=== PATIENT | female | born 1950 | race Caucasian/White ===

== ENCOUNTER 2017-03-11 12:46 | Inpatient (IN) | payer MEDICARE, BC ==
[~2017-03-11] VITALS: Ht 160 cm; Wt 69.1 kg
[~2017-03-11 12:46] MED LIST: ASPI-1265 PO; ATOR20TA PO; ATOR40TA PO; CLOP75TA35 PO; DOL10T PO; ESZO3TAB39 PO; GABA-338 PO; HYDR10SY14 PO; LISI2.5T2 PO; LORA1TAB PO; LURA80TA3 PO; NITR0.4T51 SL; PANT-47 PO; POTA10CA44 PO; PRAM0.252 PO; PRAZ2CAP2 PO; VORT10TA PO
[2017-03-11 13:05] LABS: BASOPHILS % (AUTO) 0.1 % (0-1); EOSINOPHILS # (AUTO) 0.1 X10'3 (0-0.9); EOSINOPHILS % (AUTO) 1.5 % (0-6); HEMOGLOBIN 15.1 g/dl (12.0-16.0); LYMPHOCYTES # (AUTO) 1.9 X10'3 (1.1-4.8); LYMPHOCYTES % (AUTO) 32.1 % (21-51); MEAN CORPUSCULAR HEMOGLOBIN 30.1 PG (27.0-31.0); MEAN CORPUSCULAR HGB CONC 33.6 % (33.0-36.5); MEAN CORPUSCULAR VOLUME 89.5 FL (78-98); MEAN PLATELET VOLUME 7.4 FL (7.4-10.4); MONOCYTES # (AUTO) 0.3 X10'3 (0-0.9); MONOCYTES % (AUTO) 5.7 % (2-12); NEUTROPHILS # (AUTO) 3.6 X10'3 (1.8-7.7); NEUTROPHILS % (AUTO) 60.6 % (42-75); PLATELET COUNT 191 X10'3 (140-440); RED BLOOD COUNT 5.02 X10'6 (4.20-5.60); RED CELL DISTRIBUTION WIDTH 13.9 % (11.5-14.5)
[2017-03-11 13:15] LABS: PARTIAL THROMBOPLASTIN TIME 27 SECONDS (22-32); PROTHROMBIN TIME 10.4 SECONDS (9.0-12.0)
[2017-03-11 13:22] LABS: ALANINE AMINOTRANSFERASE 18 U/L (12-78); ALBUMIN 4.4 G/DL (3.4-5.0); ALBUMIN/GLOBULIN RATIO 1.5 (1.1-1.5); ALKALINE PHOSPHATASE 116 IU/L (46-116); ANION GAP 10 (8-16); ASPARTATE AMINO TRANSFERASE 15 U/L (10-37); BILIRUBIN,TOTAL 0.6 MG/DL (0.1-1.0); BLOOD UREA NITROGEN 14 MG/DL (7-18); BUN/CREATININE RATIO 13.1 (6.6-38.0); CALCIUM 9.7 MG/DL (8.5-10.1); CHLORIDE 103 MMOL/L (99-107); CREATININE 1.07 MG/DL (0.40-0.90); GLUCOSE 99 MG/DL (70-104); POTASSIUM 3.5 MMOL/L (3.5-5.1); SODIUM 143 MMOL/L (135-145); TOTAL PROTEIN 7.4 G/DL (6.4-8.2); eGFR 51 ML/MIN
[2017-03-11] MEDS ORDERED: aspirin 81mg tab.chew PO ONE (13:45)
[2017-03-11] MEDS ORDERED: nitroGLYCERIN 0.4mg SUBLingual tab SL PRN (13:45)
[2017-03-11] MEDS ORDERED: mag hydrox/Alum hydrox/simeth 30ml oral suspension PO PRN (14:45)
[2017-03-11] MEDS ORDERED: magnesium 4gm in 100ml NS 100 ML IV PRN (14:45)
[2017-03-11] MEDS ORDERED: magnesium Cl slow-release 64mg tablet PO PRN (14:45)
[2017-03-11] MEDS ORDERED: magnesium 2GM in 50ml NS 50 ML IV PRN (14:45)
[2017-03-11] MEDS ORDERED: magnesium hydroxide 30ml (MOM) UD suspension PO PRN (14:45)
[2017-03-11] MEDS ORDERED: acetaminophen 325mg tablet PO PRN (14:45)
[2017-03-11] MEDS ORDERED: potassium Cl 20 mEq SR tablet PO PRN ×2 (14:45)
[2017-03-11] MEDS ORDERED: albuterol 2.5 MG/3 ML nebule NEB PRN (14:45)
[2017-03-11] MEDS ORDERED: potassium Cl 40MEQ/NS 500ml 500 ML IV PRN ×2 (14:45)
[2017-03-11] MEDS ORDERED: ipratropium/albuterol 3ml nebule NEB PRN (14:45)
[2017-03-11] MEDS ORDERED: ondansetron/PF 4mg/2ml inj IV PRN (14:45)
[2017-03-11 15:00] VITALS: BP 157/62
[2017-03-11] MEDS: normal saline 1000ml 1,000 ML IV SCH (15:16)
[2017-03-11 19:00] VITALS: BP 152/68
[2017-03-11 19:41] LABS: BASOPHILS % (AUTO) 0.4 % (0-1); EOSINOPHILS # (AUTO) 0.1 X10'3 (0-0.9); EOSINOPHILS % (AUTO) 1.1 % (0-6); HEMATOCRIT 40.7 % (35.0-45.0); HEMOGLOBIN 13.9 g/dl (12.0-16.0); LYMPHOCYTES # (AUTO) 1.8 X10'3 (1.1-4.8); LYMPHOCYTES % (AUTO) 28.5 % (21-51); MEAN CORPUSCULAR HEMOGLOBIN 30.2 PG (27.0-31.0); MEAN CORPUSCULAR HGB CONC 34.1 % (33.0-36.5); MEAN CORPUSCULAR VOLUME 88.6 FL (78-98); MEAN PLATELET VOLUME 7.5 FL (7.4-10.4); MONOCYTES # (AUTO) 0.3 X10'3 (0-0.9); MONOCYTES % (AUTO) 4.6 % (2-12); NEUTROPHILS # (AUTO) 4.2 X10'3 (1.8-7.7); NEUTROPHILS % (AUTO) 65.4 % (42-75); PLATELET COUNT 175 X10'3 (140-440); RED CELL DISTRIBUTION WIDTH 13.7 % (11.5-14.5); WHITE BLOOD COUNT 6.4 X10'3 (4.5-11.0)
[2017-03-11] MEDS: enoxaparin 40mg/0.4ml syringe SQ SCH (20:43)
[2017-03-11] MEDS: enoxaparin 30mg/0.3ml syringe SQ SCH (20:43)
[2017-03-11] MEDS: gabapentin 300mg capsule PO SCH (20:44)
[2017-03-11] MEDS: atorvastatin 20mg tablet PO SCH (20:44)
[2017-03-11] MEDS: pramipexole 0.25mg tablet PO SCH (20:45)
[2017-03-11] MEDS: prazosin 1mg capsule PO SCH (20:46)
[2017-03-11] MEDS: LORazepam 1 MG tablet PO PRN (20:46)
[2017-03-11] MEDS ORDERED: temazepam 15mg capsule PO PRN (21:00)
[2017-03-11] MEDS ORDERED: lurasidone 20mg tablet PO ONE (21:00)
[2017-03-11 23:00] VITALS: BP 145/65
[2017-03-12] VITALS (16 sets, daily range): BP systolic 135–178; BP diastolic 51–90
[2017-03-12] MEDS: normal saline 1000ml 1,000 ML IV SCH (00:45)
[2017-03-12 01:34] LABS: ALANINE AMINOTRANSFERASE 15 U/L (12-78); ALBUMIN 3.5 G/DL (3.4-5.0); ALBUMIN/GLOBULIN RATIO 1.3 (1.1-1.5); ALKALINE PHOSPHATASE 98 IU/L (46-116); ANION GAP 8 (8-16); ASPARTATE AMINO TRANSFERASE 14 U/L (10-37); BILIRUBIN,TOTAL 0.6 MG/DL (0.1-1.0); BLOOD UREA NITROGEN 14 MG/DL (7-18); BUN/CREATININE RATIO 15.7 (6.6-38.0); CALCIUM 9.1 MG/DL (8.5-10.1); CHLORIDE 109 MMOL/L (99-107); CREATININE 0.89 MG/DL (0.40-0.90); GLUCOSE 90 MG/DL (70-104); POTASSIUM 3.7 MMOL/L (3.5-5.1); SODIUM 144 MMOL/L (135-145); TOTAL CARBON DIOXIDE 26.8 MMOL/L (24-32); TOTAL PROTEIN 6.1 G/DL (6.4-8.2); eGFR 64 ML/MIN
[2017-03-12 01:38] LABS: MAGNESIUM 1.9 MG/DL (1.5-2.4)
[2017-03-12 01:51] LABS: BASOPHILS % (AUTO) 0.3 % (0-1); EOSINOPHILS # (AUTO) 0.1 X10'3 (0-0.9); EOSINOPHILS % (AUTO) 1.9 % (0-6); HEMATOCRIT 40.8 % (35.0-45.0); HEMOGLOBIN 13.7 g/dl (12.0-16.0); LYMPHOCYTES # (AUTO) 2.6 X10'3 (1.1-4.8); LYMPHOCYTES % (AUTO) 45.4 % (21-51); MEAN CORPUSCULAR HEMOGLOBIN 30.2 PG (27.0-31.0); MEAN CORPUSCULAR HGB CONC 33.5 % (33.0-36.5); MONOCYTES # (AUTO) 0.3 X10'3 (0-0.9); MONOCYTES % (AUTO) 5.8 % (2-12); NEUTROPHILS # (AUTO) 2.7 X10'3 (1.8-7.7); NEUTROPHILS % (AUTO) 46.6 % (42-75); PLATELET COUNT 165 X10'3 (140-440); RED BLOOD COUNT 4.54 X10'6 (4.20-5.60); RED CELL DISTRIBUTION WIDTH 13.8 % (11.5-14.5); WHITE BLOOD COUNT 5.7 X10'3 (4.5-11.0)
[2017-03-12] MEDS: K and/or MAG REPLACEMENT MC SCH (06:36)
[2017-03-12] MEDS: clopidogrel 75mg tablet PO SCH (07:48)
[2017-03-12] MEDS: pantoprazole 40mg Tablet.DR PO SCH (07:48)
[2017-03-12] MEDS: aspirin 81mg tab.chew PO SCH (07:48)
[2017-03-12] MEDS: voritioxetine HBr 5mg tablet PO SCH (07:49)
[2017-03-12] MEDS: lisinopril 2.5mg tablet PO SCH (07:51)
[2017-03-12] MEDS: enoxaparin 30mg/0.3ml syringe SQ SCH ×2 (07:51→19:36)
[2017-03-12] MEDS: enoxaparin 40mg/0.4ml syringe SQ SCH ×2 (07:52→19:36)
[2017-03-12] MEDS: hydrOXYzine 10 MG tablet PO SCH (07:55)
[2017-03-12] MEDS ORDERED: non-formulary drug (Atorvastatin Calcium* (Lipitor*) 1 TAB) PO SCH (08:00)
[2017-03-12] MEDS ORDERED: potassium chloride 10mEq CAPSULE.SA PO SCH (08:00)
[2017-03-12] MEDS ORDERED: aminophylline inj. 10 ML IV ONE (10:50)
[2017-03-12] MEDS ORDERED: regadenoson 0.4mg/5ml syringe IV ONE ×2 (10:50→11:05)
[2017-03-12] MEDS ORDERED: aminophylline 250mg/10ml inj. IV PRN (11:35)
[2017-03-12] MEDS ORDERED: regadenoson 0.4mg/5ml syringe IV PRN (11:40)
[2017-03-12] MEDS: LORazepam 1 MG tablet PO PRN (19:35)
[2017-03-12] MEDS: prazosin 1mg capsule PO SCH (21:00)
[2017-03-12] MEDS: pramipexole 0.25mg tablet PO SCH (21:05)
[2017-03-12] MEDS: gabapentin 300mg capsule PO SCH (21:05)
[2017-03-12] MEDS: atorvastatin 20mg tablet PO SCH (21:05)
[2017-03-13 03:00] VITALS: BP 158/67
[2017-03-13 07:00] VITALS: BP 114/50
[2017-03-13 07:00] LABS: BASOPHILS % (AUTO) 0.3 % (0-1); EOSINOPHILS # (AUTO) 0.1 X10'3 (0-0.9); EOSINOPHILS % (AUTO) 1.8 % (0-6); HEMATOCRIT 40.2 % (35.0-45.0); HEMOGLOBIN 13.6 g/dl (12.0-16.0); LYMPHOCYTES # (AUTO) 2.2 X10'3 (1.1-4.8); LYMPHOCYTES % (AUTO) 43.8 % (21-51); MEAN CORPUSCULAR HEMOGLOBIN 30.3 PG (27.0-31.0); MEAN CORPUSCULAR VOLUME 89.3 FL (78-98); MEAN PLATELET VOLUME 7.9 FL (7.4-10.4); MONOCYTES # (AUTO) 0.3 X10'3 (0-0.9); MONOCYTES % (AUTO) 5.9 % (2-12); NEUTROPHILS # (AUTO) 2.4 X10'3 (1.8-7.7); NEUTROPHILS % (AUTO) 48.2 % (42-75); PLATELET COUNT 153 X10'3 (140-440); RED CELL DISTRIBUTION WIDTH 13.9 % (11.5-14.5)
[2017-03-13] MEDS: K and/or MAG REPLACEMENT MC SCH (08:00)
[2017-03-13] MEDS: hydrOXYzine 10 MG tablet PO SCH (08:07)
[2017-03-13] MEDS: clopidogrel 75mg tablet PO SCH (08:08)
[2017-03-13] MEDS: lisinopril 2.5mg tablet PO SCH (08:08)
[2017-03-13] MEDS: voritioxetine HBr 5mg tablet PO SCH (08:08)
[2017-03-13] MEDS: pantoprazole 40mg Tablet.DR PO SCH (08:09)
[2017-03-13] MEDS: aspirin 81mg tab.chew PO SCH (08:09)
[2017-03-13] MEDS ORDERED: carVEDilol 3.125mg tablet PO SCH (08:15)
[2017-03-13 08:19] LABS: ALANINE AMINOTRANSFERASE 15 U/L (12-78); ALBUMIN 3.4 G/DL (3.4-5.0); ALBUMIN/GLOBULIN RATIO 1.3 (1.1-1.5); ALKALINE PHOSPHATASE 90 IU/L (46-116); ANION GAP 7 (8-16); ASPARTATE AMINO TRANSFERASE 14 U/L (10-37); BILIRUBIN,TOTAL 0.6 MG/DL (0.1-1.0); BLOOD UREA NITROGEN 12 MG/DL (7-18); BUN/CREATININE RATIO 10.8 (6.6-38.0); CALCIUM 9.3 MG/DL (8.5-10.1); CHLORIDE 110 MMOL/L (99-107); CHOL/HDL RATIO 3.4 (0.00-4.99); CHOLESTEROL 131 MG/DL (0-200); CREATININE 1.11 MG/DL (0.40-0.90); GLUCOSE 82 MG/DL (70-104); HDL CHOLESTEROL 38 MG/DL (35-60); LDL CHOLESTEROL 73 MG/DL (50-100); MAGNESIUM 1.8 MG/DL (1.5-2.4); POTASSIUM 3.9 MMOL/L (3.5-5.1); SODIUM 145 MMOL/L (135-145); TOTAL CARBON DIOXIDE 27.8 MMOL/L (24-32); TRIGLYCERIDES 106 MG/DL (20-135); eGFR 49 ML/MIN
[2017-03-13] MEDS ORDERED: COR3.125T PO (10:45)
== END 2017-03-13 14:35 | disposition home or self-care (01) | DRG 303 ==
LOC: ER 12:47 → ED HOLD 14:52 → PCU 3S 16:15
PROVIDERS: ADMIT Internal Medicine; ATTEND Family Medicine
PROC: 4A02XM4 Measurement of Cardiac Total Activity, External Approach (ICD-10-PCS; principal; 2017-03-12)
PROC: 3E073KZ Introduction of Other Diagnostic Substance into Coronary Artery, Percutaneous Approach (ICD-10-PCS; 2017-03-12)
DX: I25.119 Atherosclerotic heart disease of native coronary artery with unspecified angina pectoris (principal); G62.9 Polyneuropathy, unspecified; I27.20 Pulmonary hypertension, unspecified; J44.9 Chronic obstructive pulmonary disease, unspecified; I25.5 Ischemic cardiomyopathy; E78.00 Pure hypercholesterolemia, unspecified; E78.5 Hyperlipidemia, unspecified; F12.90 Cannabis use, unspecified, uncomplicated; F17.210 Nicotine dependence, cigarettes, uncomplicated; F31.9 Bipolar disorder, unspecified; F41.9 Anxiety disorder, unspecified; G40.909 Epilepsy, unspecified, not intractable, without status epilepticus; G89.29 Other chronic pain; Z96.612 Presence of left artificial shoulder joint; I12.9 Hypertensive chronic kidney disease with stage 1 through stage 4 chronic kidney disease, or unspecified chronic kidney disease; K21.9 Gastro-esophageal reflux disease without esophagitis; K27.9 Peptic ulcer, site unspecified, unspecified as acute or chronic, without hemorrhage or perforation; K29.70 Gastritis, unspecified, without bleeding; K76.9 Liver disease, unspecified; M19.90 Unspecified osteoarthritis, unspecified site; N18.9 Chronic kidney disease, unspecified; Z95.0 Presence of cardiac pacemaker; Z95.1 Presence of aortocoronary bypass graft; Z95.5 Presence of coronary angioplasty implant and graft; Z90.710 Acquired absence of both cervix and uterus; Z90.49 Acquired absence of other specified parts of digestive tract; Z79.82 Long term (current) use of aspirin; Z79.899 Other long term (current) drug therapy; Z79.01 Long term (current) use of anticoagulants; Z86.73 Personal history of transient ischemic attack (TIA), and cerebral infarction without residual deficits
CPT/HCPCS: 36415; 78452; 80053; 80061; 83735; 84484; 85025; 85610; 85730; 87070; 93005; 93017; 93306; 94760; 99285; A9500; J0280; J1650; J2270; J2785; J7030

== ENCOUNTER 2017-03-18 23:22 | Emergency (ER) | payer MEDICARE, BC ==
[~2017-03-18] VITALS: Ht 160 cm; Wt 70.0 kg
[~2017-03-18 23:22] MED LIST changes: -ATOR20TA PO; +COR3.125T PO
[2017-03-19] MEDS ORDERED: FURO-150 PO (01:14)
[2017-03-19] MEDS ORDERED: ISOS30TA9 PO (01:14)
[2017-03-19] MEDS ORDERED: LORazepam 2 mg/ml vial IV ONE (01:20)
[2017-03-19 01:25] LABS: PARTIAL THROMBOPLASTIN TIME 28 SECONDS (22-32)
[2017-03-19 01:29] LABS: ALANINE AMINOTRANSFERASE 19 U/L (12-78); ALBUMIN 4.3 G/DL (3.4-5.0); ALBUMIN/GLOBULIN RATIO 1.4 (1.1-1.5); ALKALINE PHOSPHATASE 109 IU/L (46-116); ANION GAP 10 (8-16); ASPARTATE AMINO TRANSFERASE 18 U/L (10-37); BILIRUBIN,TOTAL 0.4 MG/DL (0.1-1.0); BLOOD UREA NITROGEN 12 MG/DL (7-18); BUN/CREATININE RATIO 11.2 (6.6-38.0); CALCIUM 9.6 MG/DL (8.5-10.1); CHLORIDE 106 MMOL/L (99-107); CREATININE 1.07 MG/DL (0.40-0.90); GLUCOSE 98 MG/DL (70-104); POTASSIUM 3.9 MMOL/L (3.5-5.1); SODIUM 142 MMOL/L (135-145); TOTAL CARBON DIOXIDE 26.1 MMOL/L (24-32); TOTAL PROTEIN 7.3 G/DL (6.4-8.2); eGFR 51 ML/MIN
[2017-03-19 01:37] LABS: BASOPHILS % (AUTO) 0.4 % (0-1); EOSINOPHILS # (AUTO) 0.1 X10'3 (0-0.9); HEMATOCRIT 44.7 % (35.0-45.0); HEMOGLOBIN 15.2 g/dl (12.0-16.0); LYMPHOCYTES # (AUTO) 1.8 X10'3 (1.1-4.8); LYMPHOCYTES % (AUTO) 17.1 % (21-51); MEAN CORPUSCULAR HEMOGLOBIN 30.1 PG (27.0-31.0); MEAN CORPUSCULAR HGB CONC 34.1 % (33.0-36.5); MEAN CORPUSCULAR VOLUME 88.2 FL (78-98); MONOCYTES # (AUTO) 0.5 X10'3 (0-0.9); MONOCYTES % (AUTO) 4.4 % (2-12); NEUTROPHILS # (AUTO) 8.2 X10'3 (1.8-7.7); NEUTROPHILS % (AUTO) 77.1 % (42-75); PLATELET COUNT 221 X10'3 (140-440); RED BLOOD COUNT 5.06 X10'6 (4.20-5.60); RED CELL DISTRIBUTION WIDTH 12.8 % (11.5-14.5); WHITE BLOOD COUNT 10.6 X10'3 (4.5-11.0)
[2017-03-19 03:42] VITALS: BP 151/90
== END 2017-03-19 04:27 | disposition home or self-care (01) ==
LOC: ER 23:23
DX: R07.89 Other chest pain (principal); R06.02 Shortness of breath; J44.9 Chronic obstructive pulmonary disease, unspecified; I10 Essential (primary) hypertension; I25.10 Atherosclerotic heart disease of native coronary artery without angina pectoris; K21.9 Gastro-esophageal reflux disease without esophagitis; E78.00 Pure hypercholesterolemia, unspecified; G89.29 Other chronic pain; F12.10 Cannabis abuse, uncomplicated; Z86.73 Personal history of transient ischemic attack (TIA), and cerebral infarction without residual deficits; Z87.11 Personal history of peptic ulcer disease; Z95.0 Presence of cardiac pacemaker; Z95.1 Presence of aortocoronary bypass graft; Z95.5 Presence of coronary angioplasty implant and graft; Z79.899 Other long term (current) drug therapy
CPT/HCPCS: 36415; 71045; 80053; 84484; 85025; 85610; 85730; 93005; 96374; 99285; J2060

== ENCOUNTER 2017-03-26 07:52 | Emergency (ER) | payer MEDICARE, BC ==
[~2017-03-26] VITALS: Ht 165.1 cm; Wt 62.6 kg
[~2017-03-26 07:52] MED LIST changes: -ASPI-1265 PO; -ESZO3TAB39 PO; +FURO-150 PO; -GABA-338 PO; -HYDR10SY14 PO; +ISOS30TA9 PO; -LISI2.5T2 PO; -LORA1TAB PO; -NITR0.4T51 SL; -PANT-47 PO; -POTA10CA44 PO; -PRAZ2CAP2 PO; -VORT10TA PO
[2017-03-26] MEDS ORDERED: normal saline 1000ML IV soln IVB ONE (08:00)
[2017-03-26 08:12] LABS: BASOPHILS % (AUTO) 0.3 % (0-1); EOSINOPHILS # (AUTO) 0.2 X10'3 (0-0.9); EOSINOPHILS % (AUTO) 3.7 % (0-6); HEMATOCRIT 39.4 % (35.0-45.0); HEMOGLOBIN 13.1 g/dl (12.0-16.0); LYMPHOCYTES # (AUTO) 1.4 X10'3 (1.1-4.8); LYMPHOCYTES % (AUTO) 25.8 % (21-51); MEAN CORPUSCULAR HGB CONC 33.3 % (33.0-36.5); MEAN PLATELET VOLUME 7.1 FL (7.4-10.4); MONOCYTES # (AUTO) 0.4 X10'3 (0-0.9); MONOCYTES % (AUTO) 8.2 % (2-12); NEUTROPHILS # (AUTO) 3.3 X10'3 (1.8-7.7); PLATELET COUNT 217 X10'3 (140-440); RED BLOOD COUNT 4.38 X10'6 (4.20-5.60); RED CELL DISTRIBUTION WIDTH 13.9 % (11.5-14.5); WHITE BLOOD COUNT 5.4 X10'3 (4.5-11.0)
[2017-03-26 08:20] LABS: PROTHROMBIN TIME 10.3 SECONDS (9.0-12.0)
[2017-03-26 08:26] LABS: ALANINE AMINOTRANSFERASE 17 U/L (12-78); ALBUMIN 3.3 G/DL (3.4-5.0); ALKALINE PHOSPHATASE 99 IU/L (46-116); ANION GAP 6 (8-16); ASPARTATE AMINO TRANSFERASE 17 U/L (10-37); BILIRUBIN,TOTAL 0.4 MG/DL (0.1-1.0); BLOOD UREA NITROGEN 9 MG/DL (7-18); CALCIUM 9.2 MG/DL (8.5-10.1); CHLORIDE 105 MMOL/L (99-107); CREATININE 1.13 MG/DL (0.40-0.90); GLUCOSE 98 MG/DL (70-104); POTASSIUM 3.9 MMOL/L (3.5-5.1); SODIUM 142 MMOL/L (135-145); TOTAL CARBON DIOXIDE 30.9 MMOL/L (24-32); TOTAL PROTEIN 6.6 G/DL (6.4-8.2); eGFR 48 ML/MIN
[2017-03-26 08:34] LABS: MAGNESIUM 1.7 MG/DL (1.5-2.4)
[2017-03-26 09:34] LABS: CLARITY,URINE CLEAR (Clear); COLOR,URINE YELLOW (Yellow); GLUCOSE, URINE NEGATIVE (Neg); KETONES,URINE TRACE mg/dl (Neg); LEUKOCYTE ESTERASE ,URINE NEGATIVE (Neg); NITRITES, URINE NEGATIVE (Neg); OCCULT BLOOD,URINE NEGATIVE (Neg); PH,URINE 5.5 (4.8-8.0); PROTEIN,URINE NEGATIVE (Neg); UROBILINOGEN,URINE 0.2 E.U/dL (0.2-1.0)
[2017-03-26 09:45] LABS: UA COLLECTION TYPE OTHER
[2017-03-26 11:21] VITALS: BP 144/90
== END 2017-03-26 11:24 | disposition home or self-care (01) ==
LOC: ER 07:53
DX: S09.90XA Unspecified injury of head, initial encounter (principal); T45.521A Poisoning by antithrombotic drugs, accidental (unintentional), initial encounter; I10 Essential (primary) hypertension; G89.29 Other chronic pain; E78.00 Pure hypercholesterolemia, unspecified; J44.9 Chronic obstructive pulmonary disease, unspecified; K21.9 Gastro-esophageal reflux disease without esophagitis; F12.10 Cannabis abuse, uncomplicated; Z86.73 Personal history of transient ischemic attack (TIA), and cerebral infarction without residual deficits; Z87.11 Personal history of peptic ulcer disease; W20.8XXA Other cause of strike by thrown, projected or falling object, initial encounter; Y93.89 Activity, other specified; Y92.89 Other specified places as the place of occurrence of the external cause; Y99.8 Other external cause status
CPT/HCPCS: 36415; 70450; 71045; 80053; 81003; 83735; 83880; 84484; 85025; 85610; 93005; 96360; 99285; A4353

== ENCOUNTER 2017-09-27 19:45 | Inpatient (IN) | payer MEDICARE, BC ==
[~2017-09-27] VITALS: Ht 160 cm; Wt 64.4 kg
[~2017-09-27 19:45] MED LIST changes: -GABA-534 PO; -IBUP-24 PO; -VORT20TA PO; -VORT5TAB PO
[2017-09-27] MEDS ORDERED: nitroGLYCERIN 0.4mg SUBLingual tab SL PRN (21:35)
[2017-09-27 21:38] VITALS: BP 140/66
[2017-09-27] MEDS ORDERED: zolpidem 5mg tablet PO ONE (21:45)
[2017-09-27] MEDS ORDERED: divalproex sodium 250mg tablet PO ONE (21:45)
[2017-09-27] MEDS ORDERED: lurasidone 20mg tablet PO ONE (21:45)
[2017-09-27] MEDS ORDERED: gabapentin 300mg capsule PO ONE (21:45)
[2017-09-27] MEDS ORDERED: busPIRone 5mg tablet PO ONE (21:45)
[2017-09-28 08:00] VITALS: BP 153/78
[2017-09-28] MEDS ORDERED: divalproex sodium 250mg tablet PO SCH (08:00)
[2017-09-28] MEDS ORDERED: lurasidone 20mg tablet PO SCH ×2 (08:00→20:00)
[2017-09-28] MEDS ORDERED: voritioxetine HBr 5mg tablet PO SCH (08:00)
[2017-09-28] MEDS ORDERED: busPIRone 5mg tablet PO SCH (08:00)
[2017-09-28 08:18] LABS: BASOPHILS % (AUTO) 0.3 % (0-1); EOSINOPHILS # (AUTO) 0.1 X10'3 (0-0.9); EOSINOPHILS % (AUTO) 2.6 % (0-6); HEMATOCRIT 38.9 % (35.0-45.0); HEMOGLOBIN 13.2 g/dl (12.0-16.0); LYMPHOCYTES # (AUTO) 1.9 X10'3 (1.1-4.8); LYMPHOCYTES % (AUTO) 44.3 % (21-51); MEAN CORPUSCULAR HEMOGLOBIN 31.9 PG (27.0-31.0); MEAN CORPUSCULAR VOLUME 93.7 FL (78-98); MEAN PLATELET VOLUME 8.1 FL (7.4-10.4); MONOCYTES # (AUTO) 0.3 X10'3 (0-0.9); NEUTROPHILS % (AUTO) 45.8 % (42-75); PLATELET COUNT 132 X10'3 (140-440); RED BLOOD COUNT 4.15 X10'6 (4.20-5.60); RED CELL DISTRIBUTION WIDTH 16.9 % (11.5-14.5); WHITE BLOOD COUNT 4.4 X10'3 (4.5-11.0)
[2017-09-28] MEDS: gabapentin 300mg capsule PO SCH ×2 (08:28→13:07)
[2017-09-28] MEDS: clopidogrel 75mg tablet PO SCH (08:28)
[2017-09-28] MEDS: atorvastatin 20mg tablet PO SCH (08:29)
[2017-09-28] MEDS: aspirin 81mg tab.chew PO SCH (08:29)
[2017-09-28] MEDS: isosorbide mononitrate 30mg tab.SR.24H PO SCH (08:29)
[2017-09-28 08:47] LABS: HEMOGLOBIN A1C 5.8 % (4.5-6.2)
[2017-09-28 09:32] LABS: CHOL/HDL RATIO 2.4 (0.00-4.99); CHOLESTEROL 127 MG/DL (0-200); HDL CHOLESTEROL 53 MG/DL (35-60); LDL CHOLESTEROL 60 MG/DL (50-100); TRIGLYCERIDES 70 MG/DL (20-135)
[2017-09-28] MEDS ORDERED: pneumococcal 23-VAL P-sac vacc 25 mcg/0.5ml vial IMVAC ONE (10:00)
[2017-09-28 19:00] VITALS: BP 172/78
[2017-09-28] MEDS: oxyCODONE/APAP 10/325mg tablet PO PRN (19:07)
[2017-09-28] MEDS: divalproex sodium 250mg tablet PO SCH (20:21)
[2017-09-28] MEDS: gabapentin 400mg capsule PO SCH (20:22)
[2017-09-28] MEDS: zolpidem 5mg tablet PO SCH (20:22)
[2017-09-28] MEDS: pramipexole 0.25mg tablet PO SCH (20:22)
[2017-09-28] MEDS: busPIRone 5mg tablet PO SCH (20:23)
[2017-09-28] MEDS ORDERED: gabapentin 300mg capsule PO SCH (21:00)
[2017-09-28] MEDS ORDERED: magnesium hydroxide 30ml (MOM) UD suspension PO PRN (21:00)
[2017-09-28] MEDS ORDERED: mag hydrox/Alum hydrox/simeth 30ml oral suspension PO PRN (21:00)
[2017-09-28] MEDS ORDERED: acetaminophen 325mg tablet PO PRN ×2 (21:00)
[2017-09-28 22:12] VITALS: BP 148/90
[2017-09-29] MEDS: oxyCODONE/APAP 10/325mg tablet PO PRN (04:30)
[2017-09-29 08:00] VITALS: BP 149/84
[2017-09-29] MEDS: voritioxetine HBr 5mg tablet PO SCH ×2 (08:06→09:07)
[2017-09-29] MEDS: busPIRone 5mg tablet PO SCH ×2 (08:06→20:00)
[2017-09-29] MEDS: aspirin 81mg tab.chew PO SCH (08:06)
[2017-09-29] MEDS: isosorbide mononitrate 30mg tab.SR.24H PO SCH (08:07)
[2017-09-29] MEDS: clopidogrel 75mg tablet PO SCH (08:07)
[2017-09-29] MEDS: atorvastatin 20mg tablet PO SCH (08:07)
[2017-09-29] MEDS: gabapentin 400mg capsule PO SCH ×3 (08:07→20:25)
[2017-09-29] MEDS ORDERED: vortioxetine HBr 10mg tablet PO ONE (11:00)
[2017-09-29] MEDS ORDERED: IBUP-24 PO (11:36)
[2017-09-29] MEDS ORDERED: voritioxetine HBr 5mg tablet PO ONE (12:20)
[2017-09-29] MEDS ORDERED: VORT5TAB PO (13:05)
[2017-09-29] MEDS ORDERED: voritioxetine HBr 5mg tablet PO SCH (13:15)
[2017-09-29] MEDS ORDERED: lurasidone 60mg tablet PO SCH (18:00)
[2017-09-29 19:00] VITALS: BP 133/86
[2017-09-29] MEDS ORDERED: GABA-534 PO (19:11)
[2017-09-29] MEDS ORDERED: VORT20TA PO (19:11)
[2017-09-29] MEDS: divalproex sodium 250mg tablet PO SCH (20:24)
[2017-09-29] MEDS: zolpidem 5mg tablet PO SCH (20:24)
[2017-09-29] MEDS: pramipexole 0.25mg tablet PO SCH (20:24)
[2017-09-30] MEDS ORDERED: voritioxetine HBr 5mg tablet PO SCH (08:00)
== END 2017-09-29 19:55 | disposition home or self-care (01) | DRG 885 ==
LOC: ADULT MH 19:45
PROVIDERS: ADMIT Psychiatry & Neurology Psychiatry; ATTEND Psychiatry & Neurology Psychiatry
DX: F33.9 Major depressive disorder, recurrent, unspecified (principal); R45.851 Suicidal ideations; I25.10 Atherosclerotic heart disease of native coronary artery without angina pectoris; M19.90 Unspecified osteoarthritis, unspecified site; E78.5 Hyperlipidemia, unspecified; I25.2 Old myocardial infarction; Z95.1 Presence of aortocoronary bypass graft; Z90.710 Acquired absence of both cervix and uterus; Z90.49 Acquired absence of other specified parts of digestive tract; Z79.02 Long term (current) use of antithrombotics/antiplatelets; Z87.891 Personal history of nicotine dependence; Z81.8 Family history of other mental and behavioral disorders
CPT/HCPCS: 36415; 80061; 83036; 85025; 87070; 90732; 99285

== ENCOUNTER → 2017-09-27 | Emergency (ER) | payer MEDICARE, BC ==
[~2017-09-27] VITALS: Ht 160 cm; Wt 65.0 kg
[~2017-09-27] MED LIST changes: +ARIP2TAB11 PO; +ARIP5TAB4 PO; +ASPI-1265 PO; +ASPI-845 PO; +BUSP10TA11 PO; +CLOP75TA15 PO; -CLOP75TA35 PO; -COR3.125T PO; +DIVA250T6 PO; -DOL10T PO; -FURO-150 PO; +GABA-532 PO; +GABA-534 PO; +IBUP-24 PO; +NITR0.4T51 SL; +OXYC-150 PO; +QUET50TA PO; +TRINTELIX PO; +VARE0.5T PO; +VORT20TA PO; +VORT5TAB PO; +ZOLP10TA PO; +motrin PO
[2017-09-27 18:23] LABS: URINE AMPHETAMINE SCREEN NEGATIVE (Neg); URINE BARBITUATE SCREEN NEGATIVE (Neg); URINE BENZODIAZEPINES SCREEN NEGATIVE (Neg); URINE CANNABINOID SCREEN NEGATIVE (Neg); URINE COCAINE SCREEN NEGATIVE (Neg); URINE METHADONE SCREEN NEGATIVE (Neg); URINE OPIATE SCREEN POSITIVE (Neg); URINE PHENCYCLIDINE SCREEN NEGATIVE (Neg)
[2017-09-27 18:48] VITALS: BP 120/52
[2017-09-27 18:54] LABS: CLARITY,URINE CLEAR (Clear); COLOR,URINE YELLOW (Yellow); GLUCOSE, URINE NEGATIVE (Neg); KETONES,URINE 15 mg/dl (Neg); LEUKOCYTE ESTERASE ,URINE TRACE (Neg); NITRITES, URINE NEGATIVE (Neg); OCCULT BLOOD,URINE NEGATIVE (Neg); PROTEIN,URINE 100 mg/dl (Neg)
[2017-09-27 18:55] LABS: UA COLLECTION TYPE CLN CATCH MIDSTREAM
[2017-09-27 18:57] LABS: BACTERIA,URINE FEW /HPF (Neg); RBC,URINE NONE SEEN /HPF (0-2); SQUAMOUS EPITHELIAL CELL,UR MANY /LPF (FEW)
[2017-09-27 19:22] LABS: BASOPHILS % (AUTO) 0.2 % (0-1); EOSINOPHILS # (AUTO) 0.1 X10'3 (0-0.9); EOSINOPHILS % (AUTO) 1.9 % (0-6); HEMATOCRIT 38.8 % (35.0-45.0); HEMOGLOBIN 13.1 g/dl (12.0-16.0); LYMPHOCYTES # (AUTO) 1.4 X10'3 (1.1-4.8); LYMPHOCYTES % (AUTO) 26.2 % (21-51); MEAN CORPUSCULAR HEMOGLOBIN 31.9 PG (27.0-31.0); MEAN CORPUSCULAR HGB CONC 33.8 % (33.0-36.5); MEAN CORPUSCULAR VOLUME 94.1 FL (78-98); MEAN PLATELET VOLUME 7.8 FL (7.4-10.4); MONOCYTES # (AUTO) 0.4 X10'3 (0-0.9); MONOCYTES % (AUTO) 7.9 % (2-12); NEUTROPHILS # (AUTO) 3.3 X10'3 (1.8-7.7); NEUTROPHILS % (AUTO) 63.8 % (42-75); PLATELET COUNT 135 X10'3 (140-440); RED BLOOD COUNT 4.12 X10'6 (4.20-5.60); RED CELL DISTRIBUTION WIDTH 16.6 % (11.5-14.5); WHITE BLOOD COUNT 5.2 X10'3 (4.5-11.0)
[2017-09-27 19:42] LABS: ALANINE AMINOTRANSFERASE 19 U/L (12-78); ALBUMIN 3.6 G/DL (3.4-5.0); ALBUMIN/GLOBULIN RATIO 1.4 (1.1-1.5); ALKALINE PHOSPHATASE 76 IU/L (46-116); ANION GAP 9 (8-16); ASPARTATE AMINO TRANSFERASE 15 U/L (10-37); BILIRUBIN,TOTAL 0.4 MG/DL (0.1-1.0); BLOOD UREA NITROGEN 18 MG/DL (7-18); BUN/CREATININE RATIO 11.3 (6.6-38.0); CALCIUM 9.5 MG/DL (8.5-10.1); CHLORIDE 110 MMOL/L (99-107); CREATININE 1.59 MG/DL (0.40-0.90); GLUCOSE 85 MG/DL (70-104); POTASSIUM 3.7 MMOL/L (3.5-5.1); SODIUM 147 MMOL/L (135-145); TOTAL CARBON DIOXIDE 28.2 MMOL/L (24-32); TOTAL PROTEIN 6.2 G/DL (6.4-8.2); eGFR 32 ML/MIN
[2017-09-27 19:50] LABS: ETHANOL < 0.010 GM/DL (0.0-0.010)
== END | disposition home or self-care (01) ==
LOC: ER 16:54
DX: F32.9 Major depressive disorder, single episode, unspecified (principal); I25.10 Atherosclerotic heart disease of native coronary artery without angina pectoris; E78.00 Pure hypercholesterolemia, unspecified; I10 Essential (primary) hypertension; J44.9 Chronic obstructive pulmonary disease, unspecified; K21.9 Gastro-esophageal reflux disease without esophagitis; F12.90 Cannabis use, unspecified, uncomplicated; Z90.89 Acquired absence of other organs; Z90.49 Acquired absence of other specified parts of digestive tract; Z95.1 Presence of aortocoronary bypass graft; Z90.710 Acquired absence of both cervix and uterus; Z98.890 Other specified postprocedural states; Z79.82 Long term (current) use of aspirin; Z79.899 Other long term (current) drug therapy
CPT/HCPCS: 36415; 80053; 80305; 80320; 81001; 84443; 85025; 99284

== ENCOUNTER 2017-10-28 13:25 | Emergency (ER) | payer MEDICARE, BC ==
[~2017-10-28] VITALS: Ht 160 cm; Wt 55.1 kg
[~2017-10-28 13:25] MED LIST changes: -ARIP2TAB11 PO; -ARIP5TAB4 PO; -ASPI-845 PO; +DIVA-74 PO; -DIVA250T6 PO; -GABA-532 PO; +GABA-534 PO; +IBUP-24 PO; -LURA80TA3 PO; -QUET50TA PO; -TRINTELIX PO; +VORT20TA PO; -motrin PO
[2017-10-28] MEDS ORDERED: morphine 4 MG/ML inj SYRINge IV PRN (13:50)
[2017-10-28] MEDS ORDERED: ondansetron/PF 4mg/2ml inj IV ONE (13:50)
[2017-10-28] MEDS ORDERED: normal saline 1000ML IV soln IVB ONE (13:50)
[2017-10-28 14:01] LABS: BASOPHILS % (AUTO) 0.2 % (0-1); EOSINOPHILS % (AUTO) 0.7 % (0-6); HEMATOCRIT 43.1 % (35.0-45.0); HEMOGLOBIN 14.9 g/dl (12.0-16.0); LYMPHOCYTES # (AUTO) 1.8 X10'3 (1.1-4.8); LYMPHOCYTES % (AUTO) 31.4 % (21-51); MEAN CORPUSCULAR HEMOGLOBIN 32.9 PG (27.0-31.0); MEAN CORPUSCULAR HGB CONC 34.7 % (33.0-36.5); MEAN CORPUSCULAR VOLUME 94.8 FL (78-98); MEAN PLATELET VOLUME 7.7 FL (7.4-10.4); MONOCYTES # (AUTO) 0.3 X10'3 (0-0.9); MONOCYTES % (AUTO) 5.9 % (2-12); NEUTROPHILS # (AUTO) 3.6 X10'3 (1.8-7.7); NEUTROPHILS % (AUTO) 61.8 % (42-75); PLATELET COUNT 159 X10'3 (140-440); RED BLOOD COUNT 4.55 X10'6 (4.20-5.60); RED CELL DISTRIBUTION WIDTH 17.1 % (11.5-14.5); WHITE BLOOD COUNT 5.8 X10'3 (4.5-11.0)
[2017-10-28 14:04] LABS: CLARITY,URINE CLEAR (Clear); COLOR,URINE YELLOW (Yellow); GLUCOSE, URINE NEGATIVE (Neg); KETONES,URINE 15 mg/dl (Neg); LEUKOCYTE ESTERASE ,URINE TRACE (Neg); NITRITES, URINE NEGATIVE (Neg); OCCULT BLOOD,URINE TRACE-INTACT (Neg); PROTEIN,URINE TRACE mg/dl (Neg)
[2017-10-28 14:05] LABS: UA COLLECTION TYPE CLN CATCH MIDSTREAM
[2017-10-28 14:09] LABS: BACTERIA,URINE 2+ /HPF (Neg); MUCUS STRANDS MODERATE /LPF (Neg); RBC,URINE 0-2 /HPF (0-2); SQUAMOUS EPITHELIAL CELL,UR MANY /LPF (FEW)
[2017-10-28 14:10] LABS: PROTHROMBIN TIME 10.4 SECONDS (9.0-12.0)
[2017-10-28 14:15] LABS: ALANINE AMINOTRANSFERASE 15 U/L (12-78); ALBUMIN 4.1 G/DL (3.4-5.0); ALBUMIN/GLOBULIN RATIO 1.5 (1.1-1.5); ALKALINE PHOSPHATASE 80 IU/L (46-116); ANION GAP 10 (8-16); ASPARTATE AMINO TRANSFERASE 17 U/L (10-37); BILIRUBIN,TOTAL 0.6 MG/DL (0.1-1.0); BLOOD UREA NITROGEN 16 MG/DL (7-18); BUN/CREATININE RATIO 14.2 (6.6-38.0); CALCIUM 9.4 MG/DL (8.5-10.1); CHLORIDE 102 MMOL/L (99-107); CREATININE 1.13 MG/DL (0.40-0.90); GLUCOSE 108 MG/DL (70-104); LIPASE 72 U/L (73-393); POTASSIUM 3.3 MMOL/L (3.5-5.1); SODIUM 141 MMOL/L (135-145); TOTAL CARBON DIOXIDE 29.1 MMOL/L (24-32); TOTAL PROTEIN 6.8 G/DL (6.4-8.2); eGFR 48 ML/MIN
[2017-10-28] MEDS ORDERED: sucralfate 1gm/10ml UD suspension PO STA (14:38)
[2017-10-28] MEDS ORDERED: mag hydrox/Alum hydrox/simeth 30ml oral suspension PO ONE (14:40)
[2017-10-28] MEDS ORDERED: LIDOcaine Viscous 15ml cup PO ONE (14:40)
[2017-10-28] MEDS ORDERED: ONDA4TAB6 PO (14:45)
[2017-10-28 15:02] VITALS: BP 123/80
== END 2017-10-28 15:15 | disposition home or self-care (01) ==
LOC: ER 13:26
DX: G89.29 Other chronic pain (principal); R10.13 Epigastric pain; I25.10 Atherosclerotic heart disease of native coronary artery without angina pectoris; E78.00 Pure hypercholesterolemia, unspecified; F12.90 Cannabis use, unspecified, uncomplicated; I10 Essential (primary) hypertension; J44.9 Chronic obstructive pulmonary disease, unspecified; K21.9 Gastro-esophageal reflux disease without esophagitis; F31.9 Bipolar disorder, unspecified; Z90.49 Acquired absence of other specified parts of digestive tract; Z95.1 Presence of aortocoronary bypass graft; Z98.61 Coronary angioplasty status; Z95.0 Presence of cardiac pacemaker; Z86.73 Personal history of transient ischemic attack (TIA), and cerebral infarction without residual deficits; Z98.890 Other specified postprocedural states; Z90.710 Acquired absence of both cervix and uterus; Z79.82 Long term (current) use of aspirin; Z79.899 Other long term (current) drug therapy
CPT/HCPCS: 36415; 80053; 81001; 83690; 85025; 85610; 96361; 96374; 96375; 99284; J2270; J2405; J7030

== ENCOUNTER 2017-12-22 16:55 | Emergency (ER) | payer MEDICARE, BC ==
[~2017-12-22] VITALS: Ht 160 cm; Wt 62.0 kg
[~2017-12-22 16:55] MED LIST changes: +ONDA4TAB6 PO
[2017-12-22] MEDS ORDERED: normal saline 1000ml 1,000 ML IV ONE (17:10)
[2017-12-22] MEDS ORDERED: aspirin 325mg tablet PO ONE (17:10)
[2017-12-22] MEDS ORDERED: acetaminophen 325mg tablet PO ONE (17:30)
[2017-12-22 17:43] LABS: BASOPHILS % (AUTO) 0.2 % (0-1); EOSINOPHILS % (AUTO) 0.8 % (0-6); HEMATOCRIT 36.6 % (35.0-45.0); HEMOGLOBIN 12.2 g/dl (12.0-16.0); LYMPHOCYTES # (AUTO) 1.5 X10'3 (1.1-4.8); LYMPHOCYTES % (AUTO) 29.8 % (21-51); MEAN CORPUSCULAR HEMOGLOBIN 32.8 PG (27.0-31.0); MEAN CORPUSCULAR HGB CONC 33.2 % (33.0-36.5); MEAN CORPUSCULAR VOLUME 98.6 FL (78-98); MEAN PLATELET VOLUME 7.5 FL (7.4-10.4); MONOCYTES # (AUTO) 0.4 X10'3 (0-0.9); MONOCYTES % (AUTO) 7.2 % (2-12); NEUTROPHILS # (AUTO) 3.1 X10'3 (1.8-7.7); PLATELET COUNT 155 X10'3 (140-440); RED BLOOD COUNT 3.71 X10'6 (4.20-5.60); RED CELL DISTRIBUTION WIDTH 14.3 % (11.5-14.5); WHITE BLOOD COUNT 5.1 X10'3 (4.5-11.0)
[2017-12-22 18:04] LABS: ALANINE AMINOTRANSFERASE 19 U/L (12-78); ALBUMIN 3.1 G/DL (3.4-5.0); ALBUMIN/GLOBULIN RATIO 1.2 (1.1-1.5); ALKALINE PHOSPHATASE 73 IU/L (46-116); ANION GAP 9 (8-16); ASPARTATE AMINO TRANSFERASE 20 U/L (10-37); BILIRUBIN,TOTAL 0.3 MG/DL (0.1-1.0); BLOOD UREA NITROGEN 25 MG/DL (7-18); CALCIUM 8.3 MG/DL (8.5-10.1); CHLORIDE 110 MMOL/L (99-107); CREATININE 1.39 MG/DL (0.40-0.90); D-DIMER 0.33 MG/L FEU (0-0.50); GLUCOSE 91 MG/DL (70-104); PARTIAL THROMBOPLASTIN TIME 27 SECONDS (22-32); POTASSIUM 4.5 MMOL/L (3.5-5.1); PROTHROMBIN TIME 10.2 SECONDS (9.0-12.0); SODIUM 145 MMOL/L (135-145); TOTAL PROTEIN 5.7 G/DL (6.4-8.2); eGFR 38 ML/MIN
[2017-12-22 19:21] VITALS: BP 169/91
== END 2017-12-22 19:55 | disposition home or self-care (01) ==
LOC: ER 16:56
DX: M54.9 Dorsalgia, unspecified (principal); R07.9 Chest pain, unspecified; E78.00 Pure hypercholesterolemia, unspecified; I25.10 Atherosclerotic heart disease of native coronary artery without angina pectoris; I10 Essential (primary) hypertension; J44.9 Chronic obstructive pulmonary disease, unspecified; K21.9 Gastro-esophageal reflux disease without esophagitis; Z86.73 Personal history of transient ischemic attack (TIA), and cerebral infarction without residual deficits; G89.29 Other chronic pain; Z95.1 Presence of aortocoronary bypass graft; Z90.49 Acquired absence of other specified parts of digestive tract; Z98.61 Coronary angioplasty status; F12.90 Cannabis use, unspecified, uncomplicated; Z79.82 Long term (current) use of aspirin; Z79.899 Other long term (current) drug therapy
CPT/HCPCS: 36415; 71045; 71250; 80053; 84484; 85025; 85379; 85610; 85730; 93005; 99285

== ENCOUNTER 2018-04-29 17:03 | Emergency (ER) | payer MEDICARE, BC ==
[~2018-04-29] VITALS: Ht 160 cm; Wt 71.0 kg
[2018-04-29 18:18] LABS: BASOPHILS % (AUTO) 0.4 % (0-1); EOSINOPHILS # (AUTO) 0.1 X10'3 (0-0.9); EOSINOPHILS % (AUTO) 0.9 % (0-6); HEMOGLOBIN 14.4 g/dl (12.0-16.0); LYMPHOCYTES % (AUTO) 32.4 % (21-51); MEAN CORPUSCULAR HEMOGLOBIN 31.6 PG (27.0-31.0); MEAN CORPUSCULAR HGB CONC 33.4 g/dL (33.0-36.5); MEAN CORPUSCULAR VOLUME 94.5 FL (78-98); MEAN PLATELET VOLUME 7.9 FL (7.4-10.4); MONOCYTES # (AUTO) 0.4 X10'3 (0-0.9); MONOCYTES % (AUTO) 6.7 % (2-12); NEUTROPHILS # (AUTO) 3.7 X10'3 (1.8-7.7); NEUTROPHILS % (AUTO) 59.6 % (42-75); PLATELET COUNT 193 X10'3 (140-440); RED BLOOD COUNT 4.56 X10'6 (4.20-5.60); RED CELL DISTRIBUTION WIDTH 13.3 % (11.5-14.5); WHITE BLOOD COUNT 6.2 X10'3 (4.5-11.0)
[2018-04-29 18:33] LABS: ALANINE AMINOTRANSFERASE 25 U/L (12-78); ALBUMIN 4.2 G/DL (3.4-5.0); ALBUMIN/GLOBULIN RATIO 1.5 (1.1-1.5); ALKALINE PHOSPHATASE 86 IU/L (46-116); ANION GAP 11 (8-16); ASPARTATE AMINO TRANSFERASE 23 U/L (10-37); BILIRUBIN,TOTAL 0.5 MG/DL (0.1-1.0); BLOOD UREA NITROGEN 25 MG/DL (7-18); BUN/CREATININE RATIO 20.8 (6.6-38.0); CALCIUM 9.6 MG/DL (8.5-10.1); CHLORIDE 103 MMOL/L (99-107); GLUCOSE 97 MG/DL (70-104); POTASSIUM 4.3 MMOL/L (3.5-5.1); SODIUM 141 MMOL/L (135-145); TOTAL CARBON DIOXIDE 27.1 MMOL/L (24-32); eGFR 45 ML/MIN
[2018-04-29 18:36] LABS: PARTIAL THROMBOPLASTIN TIME 26 SECONDS (22-32); PROTHROMBIN TIME 10.4 SECONDS (9.0-12.0)
--- NOTE | 2018-04-29 19:58 | NUR ---
Patient resting in bed with family and requesting to know when her next blood draw will be. Patient updated on POC.
[2018-04-29 21:07] VITALS: BP 132/69
== END 2018-04-29 21:09 | disposition home or self-care (01) ==
LOC: ER 17:04
DX: R07.2 Precordial pain (principal); I10 Essential (primary) hypertension; E78.00 Pure hypercholesterolemia, unspecified; K21.9 Gastro-esophageal reflux disease without esophagitis; J44.9 Chronic obstructive pulmonary disease, unspecified; I25.10 Atherosclerotic heart disease of native coronary artery without angina pectoris; G89.29 Other chronic pain; F32.9 Major depressive disorder, single episode, unspecified; Z86.73 Personal history of transient ischemic attack (TIA), and cerebral infarction without residual deficits; Z87.11 Personal history of peptic ulcer disease; Z90.49 Acquired absence of other specified parts of digestive tract; Z90.410 Acquired total absence of pancreas; Z98.62 Peripheral vascular angioplasty status; Z95.0 Presence of cardiac pacemaker; Z79.82 Long term (current) use of aspirin; Z79.899 Other long term (current) drug therapy
CPT/HCPCS: 36415; 71045; 80053; 84484; 85025; 85610; 85730; 93005; 99284

== ENCOUNTER 2018-05-26 23:54 | Emergency (ER) | payer MEDICARE, BC ==
[~2018-05-26] VITALS: Ht 160 cm; Wt 75.0 kg
[2018-05-27 00:02] VITALS: BP 142/82
[2018-05-27] MEDS ORDERED: TETanus/Pertussis (Acell)/Diphther VAC/PF (Tdap-Adult) 0.5ml syringe IM ONE (01:40)
[2018-05-27] MEDS ORDERED: amox tr/potassium clavulanate 875/125mg TAB PO ONE (01:40)
[2018-05-27] MEDS ORDERED: AMOX-580 PO (01:41)
== END 2018-05-27 01:51 | disposition home or self-care (01) ==
LOC: ER 23:55
DX: S50.811A Abrasion of right forearm, initial encounter (principal); J04.0 Acute laryngitis; I10 Essential (primary) hypertension; I25.10 Atherosclerotic heart disease of native coronary artery without angina pectoris; E78.00 Pure hypercholesterolemia, unspecified; J44.9 Chronic obstructive pulmonary disease, unspecified; K21.9 Gastro-esophageal reflux disease without esophagitis; G89.29 Other chronic pain; F12.90 Cannabis use, unspecified, uncomplicated; Z86.73 Personal history of transient ischemic attack (TIA), and cerebral infarction without residual deficits; Z90.49 Acquired absence of other specified parts of digestive tract; Z95.1 Presence of aortocoronary bypass graft; Z90.710 Acquired absence of both cervix and uterus; Z95.0 Presence of cardiac pacemaker; Z79.82 Long term (current) use of aspirin; W55.01XA Bitten by cat, initial encounter; Y93.89 Activity, other specified; Y92.89 Other specified places as the place of occurrence of the external cause; Y99.8 Other external cause status
CPT/HCPCS: 90471; 90715; 99283

== ENCOUNTER 2018-10-22 13:20 | Observation (INO) | payer MEDICARE, BC ==
[~2018-10-22] VITALS: Ht 160 cm; Wt 73.0 kg
[2018-10-22] MEDS ORDERED: ondansetron/PF 4mg/2ml inj IV ONE (13:50)
[2018-10-22] MEDS ORDERED: morphine 4 MG/ML inj SYRINge IV PRN (13:50)
[2018-10-22 14:38] LABS: BASOPHILS % (AUTO) 0.4 % (0-1); EOSINOPHILS % (AUTO) 0.5 % (0-6); HEMATOCRIT 36.6 % (35.0-45.0); HEMOGLOBIN 12.5 g/dl (12.0-16.0); LYMPHOCYTES # (AUTO) 1.7 X10'3 (1.1-4.8); LYMPHOCYTES % (AUTO) 30.4 % (21-51); MEAN CORPUSCULAR HEMOGLOBIN 33.3 PG (27.0-31.0); MEAN CORPUSCULAR HGB CONC 34.1 g/dL (33.0-36.5); MEAN CORPUSCULAR VOLUME 97.7 FL (78-98); MEAN PLATELET VOLUME 7.4 FL (7.4-10.4); MONOCYTES # (AUTO) 0.3 X10'3 (0-0.9); MONOCYTES % (AUTO) 5.3 % (2-12); NEUTROPHILS # (AUTO) 3.6 X10'3 (1.8-7.7); NEUTROPHILS % (AUTO) 63.4 % (42-75); PLATELET COUNT 171 X10'3 (140-440); RED BLOOD COUNT 3.75 X10'6 (4.20-5.60); RED CELL DISTRIBUTION WIDTH 16.7 % (11.5-14.5); WHITE BLOOD COUNT 5.7 X10'3 (4.5-11.0)
[2018-10-22 14:45] LABS: PARTIAL THROMBOPLASTIN TIME 27 SECONDS (22-32)
[2018-10-22 14:48] LABS: ALANINE AMINOTRANSFERASE 20 U/L (12-78); ALBUMIN 3.3 G/DL (3.4-5.0); ALBUMIN/GLOBULIN RATIO 1.3 (1.1-1.5); ALKALINE PHOSPHATASE 84 IU/L (46-116); ANION GAP 9 (8-16); ASPARTATE AMINO TRANSFERASE 14 U/L (10-37); BILIRUBIN,TOTAL 0.3 MG/DL (0.1-1.0); BLOOD UREA NITROGEN 14 MG/DL (7-18); BUN/CREATININE RATIO 12.4 (6.6-38.0); CALCIUM 8.6 MG/DL (8.5-10.1); CHLORIDE 109 MMOL/L (99-107); CREATININE 1.13 MG/DL (0.40-0.90); GLUCOSE 108 MG/DL (70-104); POTASSIUM 4.7 MMOL/L (3.5-5.1); SODIUM 140 MMOL/L (135-145); TOTAL CARBON DIOXIDE 22.5 MMOL/L (24-32); TOTAL PROTEIN 5.9 G/DL (6.4-8.2); eGFR 48 ML/MIN
--- NOTE | 2018-10-22 15:06 | NUR ---
chest pain now a 2. ms effective
[2018-10-22] MEDS ORDERED: morphine 2 MG/ML inj. syringe IV PRN (15:35)
[2018-10-22] MEDS ORDERED: acetaminophen 325mg tablet PO PRN (15:35)
[2018-10-22] MEDS ORDERED: mag hydrox/Alum hydrox/simeth 30ml oral suspension PO PRN (15:35)
[2018-10-22] MEDS ORDERED: ondansetron/PF 4mg/2ml inj IV PRN (15:35)
[2018-10-22] MEDS ORDERED: magnesium hydroxide 30ml (MOM) UD suspension PO PRN (15:35)
[2018-10-22] MEDS ORDERED: ondansetron 4mg rapidly disintigrating tab PO SCH (17:10)
[2018-10-22] MEDS ORDERED: oxyCODONE/APAP 10/325mg tablet PO PRN (17:10)
[2018-10-22] MEDS ORDERED: nitroGLYCERIN 0.4mg SUBLingual tab SL PRN (17:10)
[2018-10-22] MEDS ORDERED: ibuprofen 200mg tablet PO PRN (17:10)
[2018-10-22] MEDS ORDERED: DIPH25CA83 PO (17:21)
[2018-10-22] MEDS: morphine 2 MG/ML inj. syringe IV PRN (19:14)
[2018-10-22] MEDS ORDERED: busPIRone 5mg tablet PO SCH (20:00)
[2018-10-22] MEDS: gabapentin 400mg capsule PO SCH (20:14)
[2018-10-22] MEDS: busPIRone 5mg tablet PO SCH (20:32)
[2018-10-22] MEDS ORDERED: divalproex sodium 250mg tablet PO SCH (21:00)
[2018-10-22] MEDS ORDERED: pramipexole 0.25mg tablet PO SCH (21:00)
[2018-10-22] MEDS ORDERED: LORazepam 0.5 MG tablet PO PRN (21:20)
--- NOTE | 2018-10-22 23:30 | NUR ---
Received report from DEMAND PLANNING ANALYSTAPRIL Lucio. Patient to arrive shortly.
--- NOTE | 2018-10-22 23:45 | NUR ---
Patient arrived to floor from ER in a W/C. Patient A&O. and transferred herslef into bed, VS taken and tele #[phone] applied.
[2018-10-23] VITALS: BP_SYST 118; BP_SYST 188; BP_DIAS 74
[2018-10-23] MEDS: morphine 2 MG/ML inj. syringe IV PRN (01:50)
[2018-10-23 02:00] VITALS: BP 118/59
[2018-10-23 02:40] LABS: BASOPHILS % (AUTO) 0.4 % (0-1); EOSINOPHILS # (AUTO) 0.1 X10'3 (0-0.9); EOSINOPHILS % (AUTO) 1.6 % (0-6); HEMATOCRIT 37.4 % (35.0-45.0); HEMOGLOBIN 12.6 g/dl (12.0-16.0); LYMPHOCYTES # (AUTO) 1.9 X10'3 (1.1-4.8); MEAN CORPUSCULAR HEMOGLOBIN 33.1 PG (27.0-31.0); MEAN CORPUSCULAR HGB CONC 33.6 g/dL (33.0-36.5); MEAN CORPUSCULAR VOLUME 98.4 FL (78-98); MEAN PLATELET VOLUME 7.4 FL (7.4-10.4); MONOCYTES # (AUTO) 0.3 X10'3 (0-0.9); MONOCYTES % (AUTO) 5.8 % (2-12); NEUTROPHILS # (AUTO) 2.6 X10'3 (1.8-7.7); NEUTROPHILS % (AUTO) 53.2 % (42-75); PLATELET COUNT 165 X10'3 (140-440); RED CELL DISTRIBUTION WIDTH 16.9 % (11.5-14.5); WHITE BLOOD COUNT 4.9 X10'3 (4.5-11.0)
[2018-10-23 02:53] LABS: ALBUMIN 3.1 G/DL (3.4-5.0); ANION GAP 4 (8-16); BLOOD UREA NITROGEN 19 MG/DL (7-18); BUN/CREATININE RATIO 16.8 (6.6-38.0); CALCIUM 8.6 MG/DL (8.5-10.1); CHLORIDE 109 MMOL/L (99-107); CREATININE 1.13 MG/DL (0.40-0.90); GLUCOSE 90 MG/DL (70-104); POTASSIUM 4.8 MMOL/L (3.5-5.1); SODIUM 142 MMOL/L (135-145); TOTAL CARBON DIOXIDE 28.6 MMOL/L (24-32); eGFR 48 ML/MIN
--- NOTE | 2018-10-23 05:28 | NUR ---
Patient voided x 1 in the hat/toilet for a total of 500cc.
--- NOTE | 2018-10-23 06:45 | NUR ---
Patient in room PCU 3012. I have received report from Arianna CHEN and had the opportunity to ask questions and assume patient care.
--- NOTE | 2018-10-23 06:46 | NUR ---
Problems reprioritized. Patient report given, questions answered & plan of care reviewed with Loren CHEN.
[2018-10-23 07:16] VITALS: BP 136/72
[2018-10-23] MEDS ORDERED: divalproex sodium 250mg tablet PO SCH (08:00)
[2018-10-23] MEDS ORDERED: aspirin 81mg tab.chew PO SCH (08:00)
[2018-10-23] MEDS ORDERED: clopidogrel 75mg tablet PO SCH (08:00)
[2018-10-23] MEDS ORDERED: atorvastatin 20mg tablet PO SCH (08:00)
[2018-10-23] MEDS ORDERED: isosorbide dinitrate 30mg tablet PO SCH (08:00)
[2018-10-23] MEDS: busPIRone 5mg tablet PO SCH (08:11)
[2018-10-23] MEDS: gabapentin 400mg capsule PO SCH (08:11)
--- NOTE | 2018-10-23 09:29 | NUR ---
Missing Depakote 250 for Neo Lopez. [facility] Pt. found in wrong Pt. specific location Depakote is still missing Please send.
[2018-10-23 11:00] VITALS: BP 108/62
== END 2018-10-23 12:18 | disposition home or self-care (01) ==
LOC: ER 13:21 → PCU 3S 23:19 → CMPBEDREQ 23:41
PROVIDERS: ADMIT Family Medicine; ATTEND Family Medicine
DX: I25.10 Atherosclerotic heart disease of native coronary artery without angina pectoris (principal); Z90.710 Acquired absence of both cervix and uterus; I10 Essential (primary) hypertension; E78.5 Hyperlipidemia, unspecified; J44.9 Chronic obstructive pulmonary disease, unspecified; Z79.82 Long term (current) use of aspirin; Z86.73 Personal history of transient ischemic attack (TIA), and cerebral infarction without residual deficits; E78.00 Pure hypercholesterolemia, unspecified; I25.2 Old myocardial infarction; K21.9 Gastro-esophageal reflux disease without esophagitis; Z87.11 Personal history of peptic ulcer disease; G89.4 Chronic pain syndrome; F31.9 Bipolar disorder, unspecified; Z95.1 Presence of aortocoronary bypass graft; F17.200 Nicotine dependence, unspecified, uncomplicated; Z95.5 Presence of coronary angioplasty implant and graft
CPT/HCPCS: 36415; 71045; 80048; 80053; 84484; 85025; 85610; 85730; 87081; 93005; 93306; 96374; 96375; 96376; 99284; G0378; J2270; J2405

== ENCOUNTER 2018-12-25 01:49 | Inpatient (IN) | payer MEDICARE, BC ==
[~2018-12-25] VITALS: Ht 160 cm; Wt 76.4 kg
[~2018-12-25 01:49] MED LIST changes: +DIPH25CA83 PO; -ISOS30TA9 PO; -ONDA4TAB6 PO; -OXYC-150 PO; -VARE0.5T PO; -VORT20TA PO; -ZOLP10TA PO
[2018-12-25] MEDS ORDERED: morphine 4 MG/ML inj SYRINge IV ONE ×2 (02:40→05:35)
[2018-12-25] MEDS ORDERED: ondansetron/PF 4mg/2ml inj IV ONE (02:40)
[2018-12-25] MEDS ORDERED: phenazopyridine 100mg tablet PO ONE (02:40)
[2018-12-25] MEDS ORDERED: normal saline 1000ML IV soln IVB ONE ×2 (02:40→06:40)
[2018-12-25 03:05] LABS: CLARITY,URINE CLEAR (Clear); COLOR,URINE ORANGE (Yellow); GLUCOSE, URINE 250 mg/dl (Neg); LEUKOCYTE ESTERASE ,URINE TRACE (Neg); OCCULT BLOOD,URINE TRACE-INTACT (Neg); UA COLLECTION TYPE STRAIGHT CATH
[2018-12-25 03:12] LABS: BASOPHILS % (AUTO) 0.3 % (0-1); EOSINOPHILS % (AUTO) 0.2 % (0-6); HEMATOCRIT 40.6 % (35.0-45.0); HEMOGLOBIN 13.8 g/dl (12.0-16.0); LYMPHOCYTES # (AUTO) 0.9 X10'3 (1.1-4.8); LYMPHOCYTES % (AUTO) 9.4 % (21-51); MEAN CORPUSCULAR VOLUME 97.2 FL (78-98); MEAN PLATELET VOLUME 7.6 FL (7.4-10.4); MONOCYTES % (AUTO) 10.4 % (2-12); NEUTROPHILS # (AUTO) 7.5 X10'3 (1.8-7.7); NEUTROPHILS % (AUTO) 79.7 % (42-75); PLATELET COUNT 190 X10'3 (140-440); RED BLOOD COUNT 4.17 X10'6 (4.20-5.60); RED CELL DISTRIBUTION WIDTH 13.2 % (11.5-14.5); WHITE BLOOD COUNT 9.4 X10'3 (4.5-11.0)
[2018-12-25 03:15] LABS: BACTERIA,URINE 1+ /HPF (Neg); WBC,URINE 0-4 /HPF (0-4)
[2018-12-25 03:16] LABS: SQUAMOUS EPITHELIAL CELL,UR FEW /LPF (FEW)
[2018-12-25 03:21] LABS: PARTIAL THROMBOPLASTIN TIME 25 SECONDS (22-32)
[2018-12-25 03:23] LABS: ALANINE AMINOTRANSFERASE 18 U/L (12-78); ALBUMIN 3.6 G/DL (3.4-5.0); ALBUMIN/GLOBULIN RATIO 1.2 (1.1-1.5); ALKALINE PHOSPHATASE 89 IU/L (46-116); ANION GAP 14 (8-16); ASPARTATE AMINO TRANSFERASE 20 U/L (10-37); BILIRUBIN,TOTAL 0.3 MG/DL (0.1-1.0); BLOOD UREA NITROGEN 26 MG/DL (7-18); CALCIUM 8.9 MG/DL (8.5-10.1); CHLORIDE 101 MMOL/L (99-107); CREATININE 2.61 MG/DL (0.40-0.90); GLUCOSE 97 MG/DL (70-104); POTASSIUM 4.3 MMOL/L (3.5-5.1); SODIUM 137 MMOL/L (135-145); TOTAL CARBON DIOXIDE 22.5 MMOL/L (24-32); TOTAL PROTEIN 6.7 G/DL (6.4-8.2); eGFR 18 ML/MIN
--- NOTE | 2018-12-25 03:40 | NUR ---
PT C/O ABD DISCOMFORT . ASKING FOR MORE PAIN MED. NOTIFIED DR LOPEZ ABOUT PT REQUESTING PAIN RELIEF . ALONG WITH CURRENT SET OF VSS. SUGGESTED PT GET UP TO BEDSIDE COMODE TO VOID. ASSISTED PT TO BEDSIDE COMODE TO VOID.
--- NOTE | 2018-12-25 03:48 | NUR ---
RETURNED TO BEDSIDE. PT WAS UNABLE TO VOID ASKED TO GO BACK TO BED. ASSISTED PT BACK TO BED IVF BOLUS COMPLETE. MD AWARE. NOTIFIED MD THAT LAB VALUES ARE AVAILABLE FOR EVALUATION.
--- NOTE | 2018-12-25 03:59 | NUR ---
PT INDEPENDENTLY WENT TO THE BEDSIDE COMMODE. UPDATED POC , EDUCATED PT THAT A CT OF ABDOMEN WOULD NO BE PERFORMED TO FURTHER ASSESS HER CURRENT CONDITION.
--- NOTE | 2018-12-25 04:01 | NUR ---
PT SITTING ON BEDSIDE COMMODE. NO LONGER MOANING , BUT ROCKING BACK AND FORHT . AWARE THE E BUSINESS PROJECT MANAGER WILL BE BY SHORTLY FOR CT.
--- NOTE | 2018-12-25 04:15 | NUR ---
PT TO CT
--- NOTE | 2018-12-25 04:23 | NUR ---
PT BACK TO BED FROM CT EDUCATED PT THAT INFECTION IS UNCOMFORTABLE TO HELP COPE FOR THE DISCOMFORT SHE IS EXPEREIENCING
[2018-12-25] MEDS ORDERED: PHEN-716 PO ×2 (05:22→07:59)
--- NOTE | 2018-12-25 05:27 | NUR ---
Md at bedside talking with pt prior to d/c
[2018-12-25] MEDS ORDERED: HYDR-3965 PO (05:34)
[2018-12-25] MEDS ORDERED: LORazepam 2 mg/ml vial IV ONE (05:35)
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
--- NOTE | 2018-12-25 06:05 | NUR ---
PT MEDICATED ORDERED. PT WILLING TO HAVE BLADDER SCAN DONE PRIOR TO DISCHARGE. WILL SUGGEST TO MD THIS INTERVENTION TO CHECK BLADDDER FULLNESS PRIOR TO DISCHARGE.
--- NOTE | 2018-12-25 06:16 | NUR ---
SPOKE WITH DR LOPEZ ABOUT PT AND HER COID CONCERNS. DR LOPEZ IN AGREEMENT WITH THE PATIENT BEING BLADDER SCANNED PRIOR TO DISCHARGE. UPDATED PATIENT POC . PT REPORTS HER PAIN IS DOWN TO 6 AND SHE STATES SHE IS CURRENTLY FEELING LESS " FRUSTRATED AND AGITATED" PT STATES SHE WILL HAVE TO TAKE A TAXI HOME ONCE SHE GOES HOME
--- NOTE | 2018-12-25 06:29 | NUR ---
RECEIVED REPORT FROM AND ASSUMED CARE MICHOACANO, WALKED BY PT ROOM, PT IS SLEEPING, RESPIRATIONS SPONTANEOUS, EVEN AND UNLABORED, WILL DISCUSS PT DISCHARGE WITH DR SANDOVAL
[2018-12-25] MEDS ORDERED: CefTRIAXone 2gm/D5W 50ml 50 ML IV ONE (06:40)
[2018-12-25] MEDS ORDERED: GABA-532 PO (07:52)
[2018-12-25] MEDS ORDERED: DIVA-76 PO ×2 (07:57)
[2018-12-25] MEDS ORDERED: SERT50TA PO (08:00)
[2018-12-25] MEDS ORDERED: CIPR-230 PO (08:00)
[2018-12-25] MEDS ORDERED: QUET400T5 PO (08:04)
--- NOTE | 2018-12-25 08:12 | NUR ---
PT TOLERATING ICE CHIPS FOR DRY MOUTH, NO VOMITTING, JUST UPDATED PT MED REC, DR LOPEZ AT BEDSIDE FOR EVALUATION FOR ADMISSION AT THIS TIME. WILL ASK FOR GABAPENTIN 300 MG PT HOME MED FOR GROIN NERVE PAIN.
[2018-12-25] MEDS ORDERED: ATOR40TA PO (08:17)
[2018-12-25] MEDS ORDERED: gabapentin 100mg capsule PO SCH (08:25)
[2018-12-25] MEDS ORDERED: gabapentin 100mg capsule PO ONE (08:25)
--- NOTE | 2018-12-25 08:26 | NUR ---
DR LOPEZ AT BEDSIDE RECEIVED VERBAL ORDER FOR 200 MG GABAPENTIN, AND TO BLADDER SCAN PT AND START NS 100ML/HR
[2018-12-25] MEDS ORDERED: gabapentin 400mg capsule PO SCH (08:30)
[2018-12-25] MEDS ORDERED: diphenhydrAMINE 25mg capsule PO PRN ×2 (08:45→13:15)
[2018-12-25] MEDS ORDERED: magnesium 2GM in 50ml NS 50 ML IV PRN (08:45)
[2018-12-25] MEDS ORDERED: acetaminophen 325mg tablet PO PRN ×3 (08:45→11:00)
[2018-12-25] MEDS ORDERED: potassium CL 10mEq/100ml bag 100 ML IV PRN ×2 (08:45)
[2018-12-25] MEDS ORDERED: mag hydrox/Alum hydrox/simeth 30ml oral suspension PO PRN (08:45)
[2018-12-25] MEDS ORDERED: magnesium Cl slow-release 64mg tablet PO PRN (08:45)
[2018-12-25] MEDS ORDERED: acetaminophen 650mg rectal suppository RC PRN (08:45)
[2018-12-25] MEDS ORDERED: magnesium hydroxide 30ml (MOM) UD suspension PO PRN (08:45)
[2018-12-25] MEDS ORDERED: potassium Cl 20 mEq SR tablet PO PRN ×2 (08:45)
[2018-12-25] MEDS ORDERED: diphenhydrAMINE 50 mg/ml inj IV PRN (08:45)
[2018-12-25] MEDS ORDERED: bisacodyl 10mg suppository rectal RC PRN (08:45)
[2018-12-25] MEDS ORDERED: magnesium 4gm in 100ml NS 100 ML IV PRN (08:45)
[2018-12-25 09:12] LABS: PHOSPHORUS 3.1 MG/DL (2.3-4.5)
[2018-12-25] MEDS: normal saline 1000ml 1,000 ML IV SCH ×2 (09:56→19:28)
[2018-12-25] MEDS: ondansetron/PF 4mg/2ml inj IV PRN ×2 (09:57→20:02)
--- NOTE | 2018-12-25 10:16 | NUR ---
called to give report, RN transfering a pt to PCU and will call me back.
[2018-12-25] MEDS: HYDROcodone/acetaminophen 5mg/325mg tablet PO PRN ×3 (11:22→19:50)
[2018-12-25 11:55] VITALS: BP 105/49
[2018-12-25] MEDS ORDERED: nitroGLYCERIN 0.4mg SUBLingual tab SL PRN (13:15)
--- NOTE | 2018-12-25 17:07 | NUR ---
Patient c/o right groin pain that radiates up her "right side to right stomach." Patient states [place] 5/325mg ineffective and still c/o pain 10/19. Dr. Bella notified x2.
--- NOTE | 2018-12-25 17:08 | NUR ---
Patient states she feels as if her bladder is full and c/o discomfort to her right groin. Bladder scan shows 107ML in bladder. Addendum: 12/25/18 at 1738 by Linda Valero RN notified.
[2018-12-25 18:00] VITALS: BP 97/50
--- NOTE | 2018-12-25 18:20 | NUR ---
Patient in room [facility] 348. I have received report from APRIL Mckeon and had the opportunity to ask questions and assume patient care.
[2018-12-25] MEDS: quetiapine 100mg tablet PO SCH (19:50)
[2018-12-25] MEDS: heparin, porcine 5000 units/ml vial SQ SCH (19:51)
[2018-12-25] MEDS: pramipexole 0.25mg tablet PO SCH (20:08)
[2018-12-25] MEDS: divalproex sodium 500mg tablet.DR PO SCH (20:08)
[2018-12-25] MEDS: gabapentin 100mg capsule PO SCH (20:09)
[2018-12-25] MEDS: busPIRone 5mg tablet PO SCH (20:09)
[2018-12-25] MEDS ORDERED: temazepam 15mg capsule PO PRN (21:00)
[2018-12-25] MEDS ORDERED: normal saline 1000ml 1,000 ML IV ONE (23:55)
[2018-12-26] VITALS (7 sets, daily range): BP systolic 70–124; BP diastolic 45–70
--- NOTE | 2018-12-26 05:00 | NUR ---
Patient was found down in bathroom. The aide had just been in the room and told the patient to wait to get up with assistance. The aid went to get a BSC, and when she arrived back the patient was sitting on the floor next to the toilet. The patient was helped to the toilet where she voided about 100 ml, then back to bed, and vitals were done. Pt assessed, found to be in no pain, no contusion on the head. Pt was bladder scanned and found to have 400 in the bladder. Pt tried to void, was rescanned and found to have 320. Pt refused straight cath at this time. She was educated on the importance of emptying her bladder, but would still like to wait. MD notified about fall and pt's BP of 83/45. He ordered a 500ml bolus at this time. Day shift RN will recheck BP.
[2018-12-26 05:52] LABS: BASOPHILS % (AUTO) 0.2 % (0-1); EOSINOPHILS % (AUTO) 0.2 % (0-6); HEMATOCRIT 33.3 % (35.0-45.0); HEMOGLOBIN 11.1 g/dl (12.0-16.0); LYMPHOCYTES # (AUTO) 0.9 X10'3 (1.1-4.8); LYMPHOCYTES % (AUTO) 15.9 % (21-51); MEAN CORPUSCULAR HEMOGLOBIN 33.1 PG (27.0-31.0); MEAN CORPUSCULAR HGB CONC 33.3 g/dL (33.0-36.5); MEAN CORPUSCULAR VOLUME 99.5 FL (78-98); MEAN PLATELET VOLUME 7.8 FL (7.4-10.4); MONOCYTES # (AUTO) 0.5 X10'3 (0-0.9); MONOCYTES % (AUTO) 8.5 % (2-12); NEUTROPHILS # (AUTO) 4.3 X10'3 (1.8-7.7); NEUTROPHILS % (AUTO) 75.2 % (42-75); PLATELET COUNT 141 X10'3 (140-440); RED BLOOD COUNT 3.34 X10'6 (4.20-5.60); RED CELL DISTRIBUTION WIDTH 13.7 % (11.5-14.5); WHITE BLOOD COUNT 5.8 X10'3 (4.5-11.0)
[2018-12-26] MEDS: normal saline 1000ml 1,000 ML IV SCH ×3 (06:00→18:29)
[2018-12-26] MEDS ORDERED: normal saline 1000ml 1,000 ML IV ONE (06:00)
[2018-12-26 06:05] LABS: ALANINE AMINOTRANSFERASE 183 U/L (12-78); ALBUMIN 2.7 G/DL (3.4-5.0); ALBUMIN/GLOBULIN RATIO 0.9 (1.1-1.5); ALKALINE PHOSPHATASE 98 IU/L (46-116); ANION GAP 11 (8-16); ASPARTATE AMINO TRANSFERASE 191 U/L (10-37); BILIRUBIN,TOTAL 0.3 MG/DL (0.1-1.0); BLOOD UREA NITROGEN 32 MG/DL (7-18); BUN/CREATININE RATIO 11.8 (6.6-38.0); CALCIUM 8.1 MG/DL (8.5-10.1); CHLORIDE 110 MMOL/L (99-107); CHOLESTEROL 117 MG/DL (0-200); CREATININE 2.71 MG/DL (0.40-0.90); GLUCOSE 90 MG/DL (70-104); HDL CHOLESTEROL 59 MG/DL (35-60); LDL CHOLESTEROL 39 MG/DL (50-100); MAGNESIUM 1.5 MG/DL (1.5-2.4); PHOSPHORUS 4.8 MG/DL (2.3-4.5); POTASSIUM 4.5 MMOL/L (3.5-5.1); SODIUM 142 MMOL/L (135-145); TOTAL CARBON DIOXIDE 21.4 MMOL/L (24-32); TOTAL PROTEIN 5.7 G/DL (6.4-8.2); TRIGLYCERIDES 56 MG/DL (20-135); eGFR 18 ML/MIN
--- NOTE | 2018-12-26 06:50 | NUR ---
Problems reprioritized. Patient report given, questions answered & plan of care reviewed with APRIL Mckeon.
--- NOTE | 2018-12-26 06:51 | NUR ---
Patient in room SHANTE 348. I have received report from APRIL AMBROSIO and had the opportunity to ask questions and assume patient care.
[2018-12-26] MEDS: K and/or MAG REPLACEMENT MC SCH (08:00)
[2018-12-26] MEDS: clopidogrel 75mg tablet PO SCH (08:10)
[2018-12-26] MEDS: gabapentin 100mg capsule PO SCH ×3 (08:10→20:16)
[2018-12-26] MEDS: busPIRone 5mg tablet PO SCH ×3 (08:10→20:16)
[2018-12-26] MEDS: atorvastatin 20mg tablet PO SCH (08:10)
[2018-12-26] MEDS: quetiapine 100mg tablet PO SCH ×2 (08:11→20:16)
[2018-12-26] MEDS: CefTRIAXone/D5W-Rocephin 1gm 50 ML IV SCH (08:11)
[2018-12-26] MEDS: sertraline 50mg tablet PO SCH (08:11)
[2018-12-26] MEDS: heparin, porcine 5000 units/ml vial SQ SCH ×2 (08:11→20:15)
[2018-12-26] MEDS: divalproex sodium 500mg tablet.DR PO SCH ×2 (08:11→20:24)
[2018-12-26] MEDS: aspirin 81mg tab.chew PO SCH (08:11)
--- NOTE | 2018-12-26 08:30 | NUR ---
WHEN ASSESSING PATIENT A CONTUSION TO BACK OF HEAD WAS FOUND. WHEN PATIENT WAS ASKED ABOUT HER FALL SHE STATED, "I FELL IN THE BATHROOM AND I HIT MY HEAD." DR RAMIREZ WAS NOTIFIED AND DR RAMIREZ ORDERED TO HAVE A CT OF HEAD. WILL CONTINUE TO MONITOR.
[2018-12-26 09:06] LABS: C DIFF ANTIGEN NEGATIVE (NEGATIVE); C DIFF SPECIMEN=DIARRHEA? ACCEPTABLE; C DIFFICILE TOXINS A&B NEGATIVE (Neg)
--- NOTE | 2018-12-26 10:30 | NUR ---
PATIENT C/O BLADDER DISCOMFORT AND INABILITY TO COMPLETELY EMPTY BLADDER WHEN VOIDING. BLADDER SCAN SHOWS 830ML RETAINED IN BLADDER. PATIENT AGREED TO HAVE STRAIGHT CATH PROCEDURE. PATIENT TOLERATED PROCEDURE WELL AND REPORTED RELIEF ONCE URINE WAS BEING DRAINED. 500ML OF REDDISH ORANGE URINE WAS DRAINED AND BLADDER SCAN SHOWED 0ML REMAINING IN BLADDER.
--- NOTE | 2018-12-26 18:28 | NUR ---
Problems reprioritized. Patient report given, questions answered & plan of care reviewed with APRIL HOLGUIN.
[2018-12-26] MEDS: pramipexole 0.25mg tablet PO SCH (20:16)
[2018-12-26] MEDS: lactobacillus rhamnosus 10,000 MMU CELLS/CAPSULE PO SCH (20:25)
[2018-12-27] VITALS (9 sets, daily range): BP systolic 90–147; BP diastolic 43–69
--- NOTE | 2018-12-27 03:53 | NUR ---
Dr. Cantrell notified of patient having 2 small burst of A. flutter in the 150's. MD aware to continue to monitor.
--- NOTE | 2018-12-27 03:53 | NUR ---
VSS when assess after tele had called with the 2 burst of Juan C in the 150's.
--- NOTE | 2018-12-27 04:40 | NUR ---
Tele called and patient sustaining in A.Flutters with HR in 160's to 190's. VSS check BP=96/69, HR 153, 94% 3L, RR 18, 0/10 pain,Temp 98.8 Dr. Lopez called and notified of the HR. Order stat 12 lead EKG.
[2018-12-27] MEDS ORDERED: diltiazem 5mg/ml 5ml inj. IV ONE (04:50)
[2018-12-27] MEDS ORDERED: diltiazem-NS 100mg/100ml 100 ML IV SCH (04:50)
--- NOTE | 2018-12-27 04:50 | NUR ---
Dr. Cantrell called about EKG reading. Patient in A. Fib with HR in 157. Orders to transfer to Tele STAT. Cardizem 10mg IV once. Cardizem gtt 5mg/hr.
--- NOTE | 2018-12-27 05:00 | NUR ---
Report called to tele nurse Nelly. Patient transfer to tele. All belongings sent with patient. Sitter left with patient.
[2018-12-27 05:20] LABS: EOSINOPHILS # (AUTO) 0.1 X10'3 (0-0.9); HEMATOCRIT 30.5 % (35.0-45.0); MEAN PLATELET VOLUME 7.3 FL (7.4-10.4); MONOCYTES # (AUTO) 0.3 X10'3 (0-0.9); RED BLOOD COUNT 3.09 X10'6 (4.20-5.60); WHITE BLOOD COUNT 4.6 X10'3 (4.5-11.0)
[2018-12-27 05:27] LABS: BASOPHILS % (AUTO) 0.3 % (0-1); EOSINOPHILS % (AUTO) 1.2 % (0-6); HEMOGLOBIN 10.3 g/dl (12.0-16.0); LYMPHOCYTES # (AUTO) 1.1 X10'3 (1.1-4.8); LYMPHOCYTES % (AUTO) 24.2 % (21-51); MEAN CORPUSCULAR HEMOGLOBIN 33.4 PG (27.0-31.0); MEAN CORPUSCULAR HGB CONC 33.8 g/dL (33.0-36.5); MEAN CORPUSCULAR VOLUME 98.9 FL (78-98); NEUTROPHILS # (AUTO) 3.1 X10'3 (1.8-7.7); NEUTROPHILS % (AUTO) 68.3 % (42-75); PLATELET COUNT 124 X10'3 (140-440); RED CELL DISTRIBUTION WIDTH 13.6 % (11.5-14.5)
[2018-12-27 05:38] LABS: ALANINE AMINOTRANSFERASE 101 U/L (12-78); ALBUMIN 2.2 G/DL (3.4-5.0); ALBUMIN/GLOBULIN RATIO 0.8 (1.1-1.5); ALKALINE PHOSPHATASE 87 IU/L (46-116); ANION GAP 10 (8-16); ASPARTATE AMINO TRANSFERASE 71 U/L (10-37); BILIRUBIN,TOTAL 0.2 MG/DL (0.1-1.0); BLOOD UREA NITROGEN 20 MG/DL (7-18); BUN/CREATININE RATIO 15.3 (6.6-38.0); CALCIUM 8.2 MG/DL (8.5-10.1); CHLORIDE 114 MMOL/L (99-107); CREATININE 1.31 MG/DL (0.40-0.90); GLUCOSE 76 MG/DL (70-104); MAGNESIUM 1.5 MG/DL (1.5-2.4); PHOSPHORUS 2.5 MG/DL (2.3-4.5); POTASSIUM 3.9 MMOL/L (3.5-5.1); SODIUM 142 MMOL/L (135-145); TOTAL PROTEIN 5.1 G/DL (6.4-8.2); eGFR 40 ML/MIN
--- NOTE | 2018-12-27 06:00 | NUR ---
Patient in room PCU 3015. I have received report from Betsey CHEN from Med/Surg unit. I and had the opportunity to ask questions and assume patient care. Patient came up shortly to the unit at 0510, sitter at bedside, purse in bed with patient, all other belongings in room closet. Cardizem was shortly started. At 0558 patient converted to sinus rhythm, MD Cantrell notified and got orders to stop Cardizem drip and to continue to monitor heart rate and rhythm. Will continue to monitor.
--- NOTE | 2018-12-27 06:11 | NUR ---
Patient in room [place] [address]. I have received report from Damari CHEN and had the opportunity to ask questions and assume patient care. Addendum: 12/27/18 at 0633 by Arnav Noland RN Patient in room [place] [address]. I have received report from Nelly CHEN and had the opportunity to ask questions and assume patient care.
--- NOTE | 2018-12-27 06:37 | NUR ---
Problems reprioritized. Patient report given, questions answered & plan of care reviewed with Arnav CHEN.
[2018-12-27] MEDS: CefTRIAXone/D5W-Rocephin 1gm 50 ML IV SCH (07:17)
[2018-12-27] MEDS: sertraline 50mg tablet PO SCH (07:17)
[2018-12-27] MEDS: atorvastatin 20mg tablet PO SCH (07:17)
[2018-12-27] MEDS: quetiapine 100mg tablet PO SCH ×2 (07:17→20:08)
[2018-12-27] MEDS: lactobacillus rhamnosus 10,000 MMU CELLS/CAPSULE PO SCH ×2 (07:17→20:06)
[2018-12-27] MEDS: heparin, porcine 5000 units/ml vial SQ SCH ×2 (07:17→20:06)
[2018-12-27] MEDS: K and/or MAG REPLACEMENT MC SCH (07:18)
[2018-12-27] MEDS: aspirin 81mg tab.chew PO SCH (07:18)
[2018-12-27] MEDS: busPIRone 5mg tablet PO SCH (07:18)
[2018-12-27] MEDS: clopidogrel 75mg tablet PO SCH (07:18)
[2018-12-27] MEDS: gabapentin 100mg capsule PO SCH ×3 (07:18→20:08)
[2018-12-27 07:37] LABS: PLATELET ESTIMATE DECREASED; TOTAL CELLS COUNTED 100
[2018-12-27] MEDS: divalproex sodium 500mg tablet.DR PO SCH ×2 (07:45→20:19)
--- NOTE | 2018-12-27 08:00 | NUR ---
PAGER ID: [phone] MESSAGE: [id number] Sherry Lopez: ARASH Pt BP 84/48 map 58, confirmed BP, pt states feeling dizzy, cardizem rosana was d/c'ed @ 0535 d/t convert to sinus rhythm, running IV NS 100cc/hr. Thanks Arnav [phone]
--- NOTE | 2018-12-27 08:15 | NUR ---
Spoke to Dr. Cristina in regards to BP, advised to keep a close monitor and continue IVF, no new orders at this time.
--- NOTE | 2018-12-27 08:22 | NUR ---
Pt's sitter found small orange round tab labeled [place] 013, per pill identification, medication is chewable aspirin. Primary RN made aware.
[2018-12-27] MEDS ORDERED: MIRT15TA8 PO (11:13)
[2018-12-27] MEDS: normal saline 1000ml 1,000 ML IV SCH ×2 (12:59→20:45)
--- NOTE | 2018-12-27 18:00 | NUR ---
Patient in room PCU 3015. I have received report from Arnav CHEN and had the opportunity to ask questions and assume patient care.
--- NOTE | 2018-12-27 19:30 | NUR ---
Oxygen Order Patient has been on 3L oxygen since admission to the unit, but still has no orders. MD Cantrell was notified about needing an oxygen order for the patient and he stated that the morning hospitalist needs to address it because she has been on it for so long. Will continue to monitor.
[2018-12-27] MEDS: pramipexole 0.25mg tablet PO SCH (20:08)
[2018-12-27] MEDS: ALPRAZolam 0.25mg tablet PO PRN (22:25)
[2018-12-28] VITALS (8 sets, daily range): BP systolic 105–178; BP diastolic 68–85
--- NOTE | 2018-12-28 05:15 | NUR ---
END NOC NOTE Patient had a lot of anxiety and wanted to go home at 2200, but after a phone call to a friend she realized that she needed to stay in the hospital and that she wasn't talking right. Patient does want to go home as soon as possible still. Xanax was given to relieve her anxiety. 0100 patient asked to have something for sleep, Restoril was given and patient was able to sleep comfortably after. Will continue to monitor.
--- NOTE | 2018-12-28 06:09 | NUR ---
Problems reprioritized. Patient report given, questions answered & plan of care reviewed with Arnav CHEN.
--- NOTE | 2018-12-28 06:10 | NUR ---
Patient in room PCU 3015. I have received report from Nelly CHEN and had the opportunity to ask questions and assume patient care.
[2018-12-28 06:22] LABS: BASOPHILS % (AUTO) 0.2 % (0-1); EOSINOPHILS # (AUTO) 0.1 X10'3 (0-0.9); HEMOGLOBIN 9.8 g/dl (12.0-16.0); LYMPHOCYTES # (AUTO) 1.1 X10'3 (1.1-4.8); LYMPHOCYTES % (AUTO) 28.9 % (21-51); MEAN CORPUSCULAR HEMOGLOBIN 33.6 PG (27.0-31.0); MEAN CORPUSCULAR HGB CONC 33.8 g/dL (33.0-36.5); MEAN CORPUSCULAR VOLUME 99.3 FL (78-98); MEAN PLATELET VOLUME 7.4 FL (7.4-10.4); MONOCYTES # (AUTO) 0.2 X10'3 (0-0.9); MONOCYTES % (AUTO) 4.8 % (2-12); NEUTROPHILS # (AUTO) 2.5 X10'3 (1.8-7.7); NEUTROPHILS % (AUTO) 64.1 % (42-75); PLATELET COUNT 138 X10'3 (140-440); RED BLOOD COUNT 2.92 X10'6 (4.20-5.60); RED CELL DISTRIBUTION WIDTH 13.6 % (11.5-14.5); WHITE BLOOD COUNT 3.9 X10'3 (4.5-11.0)
[2018-12-28 06:32] LABS: ALANINE AMINOTRANSFERASE 66 U/L (12-78); ALBUMIN 2.1 G/DL (3.4-5.0); ALBUMIN/GLOBULIN RATIO 0.8 (1.1-1.5); ALKALINE PHOSPHATASE 79 IU/L (46-116); ANION GAP 7 (8-16); ASPARTATE AMINO TRANSFERASE 36 U/L (10-37); BILIRUBIN,TOTAL 0.2 MG/DL (0.1-1.0); BLOOD UREA NITROGEN 14 MG/DL (7-18); BUN/CREATININE RATIO 16.7 (6.6-38.0); CHLORIDE 115 MMOL/L (99-107); CREATININE 0.84 MG/DL (0.40-0.90); GLUCOSE 66 MG/DL (70-104); MAGNESIUM 1.4 MG/DL (1.5-2.4); PHOSPHORUS 2.2 MG/DL (2.3-4.5); SODIUM 143 MMOL/L (135-145); TOTAL CARBON DIOXIDE 20.7 MMOL/L (24-32); TOTAL PROTEIN 4.7 G/DL (6.4-8.2); eGFR 68 ML/MIN
[2018-12-28 06:40] LABS: CALCIUM 8.2 MG/DL (8.5-10.1)
[2018-12-28] MEDS: normal saline 1000ml 1,000 ML IV SCH ×2 (06:45→17:21)
[2018-12-28] MEDS: CefTRIAXone/D5W-Rocephin 1gm 50 ML IV SCH (07:46)
[2018-12-28] MEDS: divalproex sodium 500mg tablet.DR PO SCH ×2 (08:18→20:07)
[2018-12-28] MEDS: aspirin 81mg tab.chew PO SCH (08:18)
[2018-12-28] MEDS: atorvastatin 20mg tablet PO SCH (08:19)
[2018-12-28] MEDS: clopidogrel 75mg tablet PO SCH (08:19)
[2018-12-28] MEDS: sertraline 50mg tablet PO SCH (08:19)
[2018-12-28] MEDS: gabapentin 100mg capsule PO SCH ×3 (08:19→20:07)
[2018-12-28] MEDS: lactobacillus rhamnosus 10,000 MMU CELLS/CAPSULE PO SCH ×2 (08:19→19:11)
[2018-12-28] MEDS: quetiapine 100mg tablet PO SCH ×2 (08:19→19:12)
[2018-12-28] MEDS: K and/or MAG REPLACEMENT MC SCH (08:20)
[2018-12-28] MEDS: heparin, porcine 5000 units/ml vial SQ SCH ×2 (08:21→19:10)
[2018-12-28] MEDS ORDERED: magnesium 4gm in 100ml NS 100 ML IV PRN (09:00)
[2018-12-28] MEDS ORDERED: magnesium 2GM in 50ml NS 50 ML IV PRN (09:00)
--- NOTE | 2018-12-28 12:08 | NUR ---
PAGER ID: [phone] MESSAGE: [id number] Sherry Lopez: ARASH BP 168/78 HR 85, no prn bp meds available. Thank you Arnav Luis received orders for hydralazine 25mg PRN q 6h for BP > 160/100
[2018-12-28] MEDS: hydrALAZINE 25 MG tablet PO PRN (13:58)
--- NOTE | 2018-12-28 18:00 | NUR ---
Patient in room PCU 3013. I have received report from Arnav CHEN and had the opportunity to ask questions and assume patient care.
--- NOTE | 2018-12-28 18:13 | NUR ---
Problems reprioritized. Patient report given, questions answered & plan of care reviewed with Nelly CHEN.
[2018-12-28] MEDS: HYDROcodone/acetaminophen 5mg/325mg tablet PO PRN (19:12)
[2018-12-28] MEDS: pramipexole 0.25mg tablet PO SCH (20:06)
[2018-12-29] VITALS (9 sets, daily range): BP systolic 90–190; BP diastolic 63–100
--- NOTE | 2018-12-29 04:19 | NUR ---
NOC NOTE Patient has slept very well tonight. [place] 10 was given for her arm pain of 8/10. Patient is hopeful to finally be discharged soon. Will continue to monitor.
[2018-12-29 05:24] LABS: BASOPHILS % (AUTO) 0.2 % (0-1); EOSINOPHILS % (AUTO) 1.7 % (0-6); HEMATOCRIT 30.6 % (35.0-45.0); HEMOGLOBIN 10.5 g/dl (12.0-16.0); MEAN CORPUSCULAR HEMOGLOBIN 33.4 PG (27.0-31.0); MEAN CORPUSCULAR HGB CONC 34.5 g/dL (33.0-36.5); MEAN CORPUSCULAR VOLUME 96.9 FL (78-98); MONOCYTES # (AUTO) 0.1 X10'3 (0-0.9); MONOCYTES % (AUTO) 5.2 % (2-12); NEUTROPHILS # (AUTO) 1.3 X10'3 (1.8-7.7); NEUTROPHILS % (AUTO) 52.9 % (42-75); PLATELET COUNT 162 X10'3 (140-440); RED BLOOD COUNT 3.16 X10'6 (4.20-5.60); RED CELL DISTRIBUTION WIDTH 13.4 % (11.5-14.5); WHITE BLOOD COUNT 2.4 X10'3 (4.5-11.0)
[2018-12-29 05:43] LABS: ALANINE AMINOTRANSFERASE 54 U/L (12-78); ALBUMIN 2.3 G/DL (3.4-5.0); ALBUMIN/GLOBULIN RATIO 0.9 (1.1-1.5); ALKALINE PHOSPHATASE 77 IU/L (46-116); ANION GAP 10 (8-16); ASPARTATE AMINO TRANSFERASE 24 U/L (10-37); BILIRUBIN,TOTAL 0.2 MG/DL (0.1-1.0); BLOOD UREA NITROGEN 9 MG/DL (7-18); BUN/CREATININE RATIO 11.3 (6.6-38.0); CALCIUM 7.9 MG/DL (8.5-10.1); CHLORIDE 114 MMOL/L (99-107); GLUCOSE 74 MG/DL (70-104); MAGNESIUM 2.1 MG/DL (1.5-2.4); PHOSPHORUS 2.6 MG/DL (2.3-4.5); POTASSIUM 3.7 MMOL/L (3.5-5.1); SODIUM 146 MMOL/L (135-145); TOTAL CARBON DIOXIDE 21.9 MMOL/L (24-32); TOTAL PROTEIN 4.9 G/DL (6.4-8.2); eGFR 72 ML/MIN
--- NOTE | 2018-12-29 06:40 | NUR ---
Problems reprioritized. Patient report given, questions answered & plan of care reviewed with Jane CHEN.
--- NOTE | 2018-12-29 06:48 | NUR ---
Patient in room PCU 3013B. I have received report from Nelly CHEN and had the opportunity to ask questions and assume patient care.
[2018-12-29 07:24] LABS: PLATELET ESTIMATE NORMAL; TOTAL CELLS COUNTED 100
[2018-12-29] MEDS: aspirin 81mg tab.chew PO SCH (07:46)
[2018-12-29] MEDS: divalproex sodium 500mg tablet.DR PO SCH ×2 (07:46→19:58)
[2018-12-29] MEDS: atorvastatin 20mg tablet PO SCH (07:46)
[2018-12-29] MEDS: CefTRIAXone/D5W-Rocephin 1gm 50 ML IV SCH (07:46)
[2018-12-29] MEDS: lactobacillus rhamnosus 10,000 MMU CELLS/CAPSULE PO SCH ×2 (07:46→18:59)
[2018-12-29] MEDS: gabapentin 100mg capsule PO SCH ×3 (07:47→19:59)
[2018-12-29] MEDS: clopidogrel 75mg tablet PO SCH (07:47)
[2018-12-29] MEDS: quetiapine 100mg tablet PO SCH ×2 (07:48→18:59)
[2018-12-29] MEDS: sertraline 50mg tablet PO SCH (07:48)
[2018-12-29] MEDS: heparin, porcine 5000 units/ml vial SQ SCH ×2 (07:49→18:59)
[2018-12-29] MEDS: HYDROcodone/acetaminophen 5mg/325mg tablet PO PRN (07:59)
[2018-12-29] MEDS: K and/or MAG REPLACEMENT MC SCH (08:00)
--- NOTE | 2018-12-29 08:24 | NUR ---
Patient removed BiPAP and is refusing to wear it, and becomes combative when mask tried to be reapplied. Placed patient on 2L O2 nasal cannula, and paged Dr Kinney regarding BiPAP and if she wants a new ABG. Will monitor patient closely PAGER ID: [phone] MESSAGE: Jane wayne [phone] [place], [address]. [id number]. Pt is refusing to continue wearing BiPAP, now currently on 2 L nasal cannula, O2 sat ranges between 88-92%. Would you like a new ABG ordered? Addendum: 12/29/18 at 0833 by Jane Hager RN OMIT , NOTE DONE ON WRONG PATIENT
[2018-12-29] MEDS: normal saline 1000ml 1,000 ML IV SCH (12:56)
[2018-12-29] MEDS: ALPRAZolam 0.25mg tablet PO PRN ×2 (13:09→22:01)
--- NOTE | 2018-12-29 18:00 | NUR ---
Patient in room PCU 3013. I have received report from Jane CHEN and had the opportunity to ask questions and assume patient care.
--- NOTE | 2018-12-29 18:08 | NUR ---
Problems reprioritized. Patient report given, questions answered & plan of care reviewed with Nelly CHEN.
[2018-12-29] MEDS: hydrALAZINE 25 MG tablet PO PRN (19:00)
[2018-12-29] MEDS: pramipexole 0.25mg tablet PO SCH (19:58)
--- NOTE | 2018-12-29 23:49 | NUR ---
Hypertension MD Cantrell was notified about the manual blood pressure of 190/100, patient was asymptomatic and sleeping with no distress, no new orders received, will continue to monitor.
[2018-12-30 02:00] VITALS: BP 145/78
--- NOTE | 2018-12-30 05:00 | NUR ---
END NOC NOTE Patient walked in the higgins with assistance and front wheel walker at the beginning of my shift. Patient has slept very well tonight. Xanax was given once for her anxiety and unable to fall asleep. Will continue to monitor.
[2018-12-30 06:00] VITALS: BP 150/96
[2018-12-30 06:12] LABS: BASOPHILS % (AUTO) 0.2 % (0-1); EOSINOPHILS % (AUTO) 0.8 % (0-6); HEMATOCRIT 32.6 % (35.0-45.0); HEMOGLOBIN 11.3 g/dl (12.0-16.0); LYMPHOCYTES # (AUTO) 0.7 X10'3 (1.1-4.8); LYMPHOCYTES % (AUTO) 17.9 % (21-51); MEAN CORPUSCULAR HEMOGLOBIN 33.1 PG (27.0-31.0); MEAN CORPUSCULAR HGB CONC 34.5 g/dL (33.0-36.5); MEAN CORPUSCULAR VOLUME 95.8 FL (78-98); MONOCYTES # (AUTO) 0.3 X10'3 (0-0.9); MONOCYTES % (AUTO) 6.3 % (2-12); NEUTROPHILS # (AUTO) 3.1 X10'3 (1.8-7.7); NEUTROPHILS % (AUTO) 74.8 % (42-75); PLATELET COUNT 160 X10'3 (140-440); RED CELL DISTRIBUTION WIDTH 13.3 % (11.5-14.5); WHITE BLOOD COUNT 4.1 X10'3 (4.5-11.0)
[2018-12-30 06:21] LABS: ALANINE AMINOTRANSFERASE 40 U/L (12-78); ALBUMIN 2.4 G/DL (3.4-5.0); ALBUMIN/GLOBULIN RATIO 0.9 (1.1-1.5); ALKALINE PHOSPHATASE 81 IU/L (46-116); ANION GAP 8 (8-16); ASPARTATE AMINO TRANSFERASE 20 U/L (10-37); BILIRUBIN,TOTAL 0.3 MG/DL (0.1-1.0); BLOOD UREA NITROGEN 6 MG/DL (7-18); BUN/CREATININE RATIO 8.3 (6.6-38.0); CALCIUM 8.4 MG/DL (8.5-10.1); CHLORIDE 110 MMOL/L (99-107); CREATININE 0.72 MG/DL (0.40-0.90); GLUCOSE 75 MG/DL (70-104); MAGNESIUM 1.4 MG/DL (1.5-2.4); PHOSPHORUS 2.4 MG/DL (2.3-4.5); POTASSIUM 3.2 MMOL/L (3.5-5.1); SODIUM 143 MMOL/L (135-145); TOTAL CARBON DIOXIDE 25.3 MMOL/L (24-32); TOTAL PROTEIN 5.1 G/DL (6.4-8.2); eGFR 81 ML/MIN
--- NOTE | 2018-12-30 06:30 | NUR ---
Patient in room PCU 3013B. I have received report from Nelly CHEN and had the opportunity to ask questions and assume patient care.
--- NOTE | 2018-12-30 06:48 | NUR ---
Patient in room PCU 3013. I have received report from Jane CHEN and had the opportunity to ask questions and assume patient care.
[2018-12-30] MEDS ORDERED: potassium CL 10mEq/100ml bag 100 ML IV PRN (07:10)
[2018-12-30] MEDS ORDERED: magnesium 4gm in 100ml NS 100 ML IV PRN (07:10)
[2018-12-30] MEDS ORDERED: potassium Cl 20 mEq SR tablet PO PRN ×2 (07:10)
[2018-12-30] MEDS ORDERED: magnesium Cl slow-release 64mg tablet PO PRN (07:10)
[2018-12-30 07:20] LABS: NUCLEATED RED BLOOD CELLS 1 /100WBC (0-0); TOTAL CELLS COUNTED 100
[2018-12-30 07:22] LABS: PLATELET ESTIMATE NORMAL; POLYCHROMASIA FEW
[2018-12-30] MEDS: CefTRIAXone/D5W-Rocephin 1gm 50 ML IV SCH (08:01)
[2018-12-30] MEDS: gabapentin 100mg capsule PO SCH ×2 (08:02→13:28)
[2018-12-30] MEDS: sertraline 50mg tablet PO SCH (08:02)
[2018-12-30] MEDS: aspirin 81mg tab.chew PO SCH (08:02)
[2018-12-30] MEDS: atorvastatin 20mg tablet PO SCH (08:02)
[2018-12-30] MEDS: clopidogrel 75mg tablet PO SCH (08:02)
[2018-12-30] MEDS: quetiapine 100mg tablet PO SCH (08:03)
[2018-12-30] MEDS: lactobacillus rhamnosus 10,000 MMU CELLS/CAPSULE PO SCH (08:03)
[2018-12-30] MEDS: heparin, porcine 5000 units/ml vial SQ SCH (08:03)
[2018-12-30] MEDS: divalproex sodium 500mg tablet.DR PO SCH (08:03)
[2018-12-30] MEDS: K and/or MAG REPLACEMENT MC SCH (08:04)
[2018-12-30] MEDS: normal saline 1000ml 1,000 ML IV SCH (08:15)
[2018-12-30 11:00] VITALS: BP 151/95
--- NOTE | 2018-12-30 11:25 | NUR ---
Sitter removed and patient moved to room 3029W. Bed alarm set, and will monitor closely
--- NOTE | 2018-12-30 12:45 | NUR ---
Gave report to Conor ALEXANDER at [facility]. All questions answered, patient will be transferred at 1500.
--- NOTE | 2018-12-30 13:18 | NUR ---
Initial: Pt admit w/ UTI, acute renal failure on CKD, dehydration which is now resolved per MD note. Pt AOx4 w/ intermittent confusion and had sitter yesterday per EMR. Pt PO 25-50% avg meals so far not meeting needs. Ensure enlive BIDBD added to meals; MD notified pending verification prior to sending on trays. LBM 12/28; pt was having loose stools which has now resolved and c.diff negative per MD note. Receiving electrolyte replacements per protocol. Hx DM w/ last A1C draw 2018 <7; RD d/w RN for new A1C per MD approval for more current DM status. Will continue to monitor. Rec: 1. continue mechanical soft/heart healthy diet per MD 2. ensure enlive BIDBD 3. wt per rx Addendum: 12/30/18 at [address] Amended: Links added.
--- NOTE | 2018-12-30 15:10 | NUR ---
Per MD, patient stable for transfer to [facility] PCU. IV removed with catheter intact and tele monitor removed. All belongings sent with patient. Patient escorted via wheelchair from hospital, accompanied by [employer] staff, and transferred to [facility] via [employer].
[2018-12-30] MEDS ORDERED: lactose-reduced food (Ensure Enlive) - 237ml bottle PO SCH (17:30)
== END 2018-12-30 15:10 | DRG 682 ==
LOC: ER 01:50 → ED HOLD 08:45 → SUR 3N 10:48 → OBSVTOIN 12-26 19:15 → PCU 3S 12-27 04:56
PROVIDERS: ADMIT Family Medicine; ATTEND Family Medicine
DX: N17.0 Acute kidney failure with tubular necrosis (principal); E43 Unspecified severe protein-calorie malnutrition; N39.0 Urinary tract infection, site not specified; E87.1 Hypo-osmolality and hyponatremia; E83.42 Hypomagnesemia; E83.51 Hypocalcemia; E86.0 Dehydration; E87.6 Hypokalemia; I48.91 Unspecified atrial fibrillation; E78.00 Pure hypercholesterolemia, unspecified; E78.5 Hyperlipidemia, unspecified; G89.29 Other chronic pain; K72.90 Hepatic failure, unspecified without coma; R19.7 Diarrhea, unspecified; R74.0 Nonspecific elevation of levels of transaminase and lactic acid dehydrogenase [LDH]; R31.29 Other microscopic hematuria; E83.39 Other disorders of phosphorus metabolism; F17.210 Nicotine dependence, cigarettes, uncomplicated; F41.8 Other specified anxiety disorders; G47.00 Insomnia, unspecified; F12.90 Cannabis use, unspecified, uncomplicated; I12.9 Hypertensive chronic kidney disease with stage 1 through stage 4 chronic kidney disease, or unspecified chronic kidney disease; I25.10 Atherosclerotic heart disease of native coronary artery without angina pectoris; Z96.612 Presence of left artificial shoulder joint; J44.9 Chronic obstructive pulmonary disease, unspecified; K21.9 Gastro-esophageal reflux disease without esophagitis; N18.9 Chronic kidney disease, unspecified; Z86.73 Personal history of transient ischemic attack (TIA), and cerebral infarction without residual deficits; Z87.11 Personal history of peptic ulcer disease; Z90.49 Acquired absence of other specified parts of digestive tract; I25.2 Old myocardial infarction; Z90.710 Acquired absence of both cervix and uterus; Z95.0 Presence of cardiac pacemaker; Z95.1 Presence of aortocoronary bypass graft; Z95.5 Presence of coronary angioplasty implant and graft; Z68.29 Body mass index [BMI] 29.0-29.9, adult
CPT/HCPCS: 36415; 70450; 74176; 76700; 76775; 80053; 80061; 80164; 81001; 83735; 84100; 85025; 85610; 85730; 87081; 87088; 87324; 87449; 96361; 96365; 96366; 96375; 96376; 97110; 97116; 97162; 99285; G0378; J0696; J1644; J2060; J2270; J2405; J3475; J3490; J7030

== ENCOUNTER 2019-01-24 09:54 | Emergency (ER) | payer MEDICARE, BC ==
[~2019-01-24] VITALS: Ht 160 cm; Wt 76.0 kg
[~2019-01-24 09:54] MED LIST changes: +CIPR-230 PO; -DIVA-74 PO; +DIVA-76 PO; +GABA-532 PO; -GABA-534 PO; +MIRT15TA8 PO; +PHEN-716 PO; +QUET400T5 PO; +SERT50TA PO
[2019-01-24] MEDS ORDERED: normal saline 1000ml 1,000 ML IV ONE (10:05)
[2019-01-24 10:28] LABS: BASOPHILS % (AUTO) 0.1 % (0-1); EOSINOPHILS % (AUTO) 0.1 % (0-6); HEMATOCRIT 35.5 % (35.0-45.0); HEMOGLOBIN 11.9 g/dl (12.0-16.0); LYMPHOCYTES # (AUTO) 0.3 X10'3 (1.1-4.8); LYMPHOCYTES % (AUTO) 4.7 % (21-51); MEAN CORPUSCULAR HEMOGLOBIN 32.8 PG (27.0-31.0); MEAN CORPUSCULAR HGB CONC 33.6 g/dL (33.0-36.5); MEAN CORPUSCULAR VOLUME 97.6 FL (78-98); MEAN PLATELET VOLUME 7.7 FL (7.4-10.4); MONOCYTES # (AUTO) 0.6 X10'3 (0-0.9); MONOCYTES % (AUTO) 9.8 % (2-12); NEUTROPHILS # (AUTO) 4.8 X10'3 (1.8-7.7); NEUTROPHILS % (AUTO) 85.3 % (42-75); PLATELET COUNT 94 X10'3 (140-440); RED BLOOD COUNT 3.64 X10'6 (4.20-5.60); RED CELL DISTRIBUTION WIDTH 14.6 % (11.5-14.5); WHITE BLOOD COUNT 5.6 X10'3 (4.5-11.0)
[2019-01-24 10:45] LABS: ALANINE AMINOTRANSFERASE 16 U/L (12-78); ALKALINE PHOSPHATASE 74 IU/L (46-116); ANION GAP 11 (8-16); ASPARTATE AMINO TRANSFERASE 54 U/L (10-37); BILIRUBIN,TOTAL 0.5 MG/DL (0.1-1.0); BLOOD UREA NITROGEN 25 MG/DL (7-18); BUN/CREATININE RATIO 18.2 (6.6-38.0); CALCIUM 8.6 MG/DL (8.5-10.1); CHLORIDE 111 MMOL/L (99-107); CREATININE 1.37 MG/DL (0.40-0.90); GLUCOSE 120 MG/DL (70-104); PLATELET ESTIMATE DECREASED; POTASSIUM 4.3 MMOL/L (3.5-5.1); SODIUM 144 MMOL/L (135-145); TOTAL CARBON DIOXIDE 21.7 MMOL/L (24-32); TOTAL CELLS COUNTED 100; TOTAL PROTEIN 5.9 G/DL (6.4-8.2); eGFR 38 ML/MIN
[2019-01-24 10:53] LABS: MAGNESIUM 1.2 MG/DL (1.5-2.4)
[2019-01-24 11:31] LABS: CREATINE KINASE 1804 U/L (26-192)
[2019-01-24] MEDS ORDERED: NICO-631 TP (12:50)
[2019-01-24] MEDS ORDERED: METH1TAB32 PO (12:50)
[2019-01-24] MEDS ORDERED: HYDR-3964 PO (12:50)
[2019-01-24] MEDS ORDERED: PRAM0.5T12 PO (12:50)
[2019-01-24] MEDS ORDERED: PRAV80TA3 PO (12:50)
[2019-01-24] MEDS ORDERED: QUET300T72 PO (12:50)
--- NOTE | 2019-01-24 13:25 | NUR ---
relieving RN for break, pt is resting quietly on gurney, [employer] ETA at 1600 per spring encaser, SARANYA Roche at bedside to assist pt up to bedside commode
--- NOTE | 2019-01-24 13:36 | NUR ---
Asked by ER staff to assist pt in returning to [facility]. Pt was just dc'd from there 2 days ago and has not been doing very well at home. Today or possibly late last night pt fell and was unable to get up off the floor. [facility] from [facility] can take her today. Transfer paperwork signed by Dr. Reed, faxed and pt has a 1600 fruit picker w/ [employer]. Nursing made aware of the timeline. Continue to monitor.
[2019-01-24 16:28] VITALS: BP 148/92
== END 2019-01-24 16:30 ==
LOC: ER 09:55
DX: R53.1 Weakness (principal); R26.9 Unspecified abnormalities of gait and mobility; E86.0 Dehydration; I25.10 Atherosclerotic heart disease of native coronary artery without angina pectoris; E78.00 Pure hypercholesterolemia, unspecified; I10 Essential (primary) hypertension; I25.2 Old myocardial infarction; J44.9 Chronic obstructive pulmonary disease, unspecified; K21.9 Gastro-esophageal reflux disease without esophagitis; G89.29 Other chronic pain; F12.90 Cannabis use, unspecified, uncomplicated; Z86.73 Personal history of transient ischemic attack (TIA), and cerebral infarction without residual deficits; Z95.5 Presence of coronary angioplasty implant and graft; Z90.49 Acquired absence of other specified parts of digestive tract; Z95.1 Presence of aortocoronary bypass graft; Z79.82 Long term (current) use of aspirin; Z79.899 Other long term (current) drug therapy
CPT/HCPCS: 36415; 70450; 71045; 72125; 80053; 82550; 83605; 83735; 83880; 85025; 87040; 93005; 99285; J7030; 99284

== ENCOUNTER 2019-02-28 05:12 | Emergency (ER) | payer MEDICARE, BC ==
[~2019-02-28] VITALS: Ht 160 cm; Wt 70.9 kg
[~2019-02-28 05:12] MED LIST changes: -ATOR40TA PO; -CIPR-230 PO; +HYDR-3964 PO; +METH1TAB32 PO; +NICO-631 TP; -PHEN-716 PO; -PRAM0.252 PO; +PRAM0.5T12 PO; +PRAV80TA3 PO; +QUET300T72 PO; -QUET400T5 PO; -SERT50TA PO
[2019-02-28] MEDS ORDERED: normal saline 1000ml 1,000 ML IV ONE (05:35)
--- NOTE | 2019-02-28 06:13 | NUR ---
STOOL SAMPLE COLLECTED AND DELIVERED TO LAB.
[2019-02-28 06:16] LABS: CLARITY,URINE CLOUDY (Clear); COLOR,URINE YELLOW (Yellow); GLUCOSE, URINE NEGATIVE (Neg); KETONES,URINE NEGATIVE (Neg); LEUKOCYTE ESTERASE ,URINE SMALL (Neg); NITRITES, URINE NEGATIVE (Neg); OCCULT BLOOD,URINE TRACE-INTACT (Neg); PROTEIN,URINE NEGATIVE (Neg); UROBILINOGEN,URINE 0.2 E.U/dL (0.2-1.0)
[2019-02-28 06:17] LABS: BASOPHILS % (AUTO) 0.1 % (0-1); EOSINOPHILS % (AUTO) 0.6 % (0-6); HEMATOCRIT 33.8 % (35.0-45.0); HEMOGLOBIN 11.6 g/dl (12.0-16.0); LYMPHOCYTES # (AUTO) 0.8 X10'3 (1.1-4.8); LYMPHOCYTES % (AUTO) 11.6 % (21-51); MEAN CORPUSCULAR HEMOGLOBIN 32.5 PG (27.0-31.0); MEAN CORPUSCULAR HGB CONC 34.4 g/dL (33.0-36.5); MEAN CORPUSCULAR VOLUME 94.6 FL (78-98); MEAN PLATELET VOLUME 7.4 FL (7.4-10.4); MONOCYTES # (AUTO) 0.7 X10'3 (0-0.9); MONOCYTES % (AUTO) 11.1 % (2-12); NEUTROPHILS # (AUTO) 5.1 X10'3 (1.8-7.7); NEUTROPHILS % (AUTO) 76.6 % (42-75); PLATELET COUNT 118 X10'3 (140-440); RED BLOOD COUNT 3.57 X10'6 (4.20-5.60); WHITE BLOOD COUNT 6.6 X10'3 (4.5-11.0)
[2019-02-28] MEDS ORDERED: phenazopyridine 100mg tablet PO ONE (06:20)
[2019-02-28] MEDS ORDERED: acetaminophen w/codeine (30MG) #3 tablet PO ONE (06:20)
[2019-02-28 06:21] LABS: UA COLLECTION TYPE STRAIGHT CATH
[2019-02-28 06:22] LABS: MUCUS STRANDS MANY /LPF (Neg); SQUAMOUS EPITHELIAL CELL,UR FEW /LPF (FEW)
[2019-02-28 06:23] LABS: RENAL CELLS, URINE FEW /HPF; TRANSITIONAL EPI CELLS,URINE FEW /HPF; WBC CLUMPS,URINE MODERATE /HPF (NEGATIVE); WBC,URINE 30-50 /HPF (0-4)
[2019-02-28 06:24] LABS: BACTERIA,URINE FEW /HPF (Neg)
[2019-02-28 06:39] LABS: ALANINE AMINOTRANSFERASE 16 U/L (12-78); ALBUMIN 2.7 G/DL (3.4-5.0); ALBUMIN/GLOBULIN RATIO 1.1 (1.1-1.5); ALKALINE PHOSPHATASE 75 IU/L (46-116); ANION GAP 7 (8-16); ASPARTATE AMINO TRANSFERASE 13 U/L (10-37); BILIRUBIN,TOTAL 0.3 MG/DL (0.1-1.0); BLOOD UREA NITROGEN 5 MG/DL (7-18); BUN/CREATININE RATIO 5.3 (6.6-38.0); CALCIUM 7.8 MG/DL (8.5-10.1); CHLORIDE 108 MMOL/L (99-107); CREATININE 0.95 MG/DL (0.40-0.90); GLUCOSE 91 MG/DL (70-104); POTASSIUM 3.1 MMOL/L (3.5-5.1); SODIUM 142 MMOL/L (135-145); TOTAL CARBON DIOXIDE 27.5 MMOL/L (24-32); TOTAL PROTEIN 5.1 G/DL (6.4-8.2); eGFR 59 ML/MIN
[2019-02-28 06:42] LABS: TROPONIN I < 0.04 NG/ML (0.0-0.05)
[2019-02-28] MEDS ORDERED: CefTRIAXone/D5W-Rocephin 1gm 50 ML IV SCH (07:15)
[2019-02-28 08:43] VITALS: BP 110/57
[2019-02-28 11:52] LABS: C DIFF ANTIGEN POSITIVE (NEGATIVE); C DIFF SPECIMEN=DIARRHEA? ACCEPTABLE; C DIFFICILE TOXINS A&B POSITIVE (Neg)
== END 2019-02-28 09:20 | disposition home or self-care (01) ==
LOC: ER 05:13
DX: N39.0 Urinary tract infection, site not specified (principal); R19.7 Diarrhea, unspecified; I25.10 Atherosclerotic heart disease of native coronary artery without angina pectoris; E78.00 Pure hypercholesterolemia, unspecified; I10 Essential (primary) hypertension; I25.2 Old myocardial infarction; J44.9 Chronic obstructive pulmonary disease, unspecified; K21.9 Gastro-esophageal reflux disease without esophagitis; G89.29 Other chronic pain; F31.9 Bipolar disorder, unspecified; F12.90 Cannabis use, unspecified, uncomplicated; Z98.61 Coronary angioplasty status; Z90.49 Acquired absence of other specified parts of digestive tract; Z95.1 Presence of aortocoronary bypass graft; Z95.0 Presence of cardiac pacemaker; Z98.890 Other specified postprocedural states; Z90.710 Acquired absence of both cervix and uterus; Z86.73 Personal history of transient ischemic attack (TIA), and cerebral infarction without residual deficits; Z79.82 Long term (current) use of aspirin; Z79.899 Other long term (current) drug therapy
CPT/HCPCS: 36415; 80053; 81001; 84484; 85025; 87088; 87324; 87449; 96361; 96365; 99284; J0696; J7030

== ENCOUNTER 2019-03-03 16:17 | Emergency (ER) | payer MEDICARE, BC ==
[~2019-03-03] VITALS: Ht 160 cm; Wt 69.9 kg
[2019-03-03 16:29] VITALS: BP 125/46
[2019-03-03] MEDS ORDERED: vancomycin 250MG/10ML UD oral solution 10ML BOTTLE PO STA (16:51)
[2019-03-03] MEDS ORDERED: vancomycin 125mg/5ml ORAL solution 5ml UD bottle PO STA (16:54)
[2019-03-03] MEDS ORDERED: VANC125C11 PO (17:08)
== END 2019-03-03 17:56 | disposition home or self-care (01) ==
LOC: ER 16:18
DX: R19.7 Diarrhea, unspecified (principal); A04.72 Enterocolitis due to Clostridium difficile, not specified as recurrent; I25.10 Atherosclerotic heart disease of native coronary artery without angina pectoris; E78.00 Pure hypercholesterolemia, unspecified; I10 Essential (primary) hypertension; I25.2 Old myocardial infarction; J44.9 Chronic obstructive pulmonary disease, unspecified; K21.9 Gastro-esophageal reflux disease without esophagitis; G89.29 Other chronic pain; F12.90 Cannabis use, unspecified, uncomplicated; Z86.73 Personal history of transient ischemic attack (TIA), and cerebral infarction without residual deficits; Z95.5 Presence of coronary angioplasty implant and graft; Z90.49 Acquired absence of other specified parts of digestive tract; Z95.1 Presence of aortocoronary bypass graft; Z79.82 Long term (current) use of aspirin; Z79.899 Other long term (current) drug therapy
CPT/HCPCS: 99283

== ENCOUNTER 2019-04-03 14:05 | Emergency (ER) | payer MEDICARE, BC ==
[~2019-04-03] VITALS: Ht 160 cm; Wt 70.9 kg
[~2019-04-03 14:05] MED LIST changes: +QUET-1 PO; -QUET300T72 PO; +VANC125C11 PO
[2019-04-03] MEDS ORDERED: normal saline 1000ML IV soln IVB ONE (17:10)
[2019-04-03 17:52] LABS: BASOPHILS # (AUTO) 0.1 X10'3 (0-0.2); BASOPHILS % (AUTO) 0.7 % (0-1); EOSINOPHILS # (AUTO) 0.1 X10'3 (0-0.9); EOSINOPHILS % (AUTO) 1.2 % (0-6); HEMATOCRIT 38.4 % (35.0-45.0); HEMOGLOBIN 13.2 g/dl (12.0-16.0); LYMPHOCYTES # (AUTO) 2.4 X10'3 (1.1-4.8); LYMPHOCYTES % (AUTO) 31.1 % (21-51); MEAN CORPUSCULAR HEMOGLOBIN 31.9 PG (27.0-31.0); MEAN CORPUSCULAR HGB CONC 34.4 g/dL (33.0-36.5); MEAN CORPUSCULAR VOLUME 92.6 FL (78-98); MEAN PLATELET VOLUME 7.2 FL (7.4-10.4); MONOCYTES # (AUTO) 0.4 X10'3 (0-0.9); MONOCYTES % (AUTO) 5.1 % (2-12); NEUTROPHILS # (AUTO) 4.9 X10'3 (1.8-7.7); NEUTROPHILS % (AUTO) 61.9 % (42-75); PLATELET COUNT 202 X10'3 (140-440); RED BLOOD COUNT 4.14 X10'6 (4.20-5.60); RED CELL DISTRIBUTION WIDTH 14.8 % (11.5-14.5); WHITE BLOOD COUNT 7.8 X10'3 (4.5-11.0)
[2019-04-03 18:05] LABS: ALANINE AMINOTRANSFERASE 26 U/L (12-78); ALBUMIN 3.9 G/DL (3.4-5.0); ALBUMIN/GLOBULIN RATIO 1.6 (1.1-1.5); ALKALINE PHOSPHATASE 108 IU/L (46-116); ANION GAP 11 (8-16); ASPARTATE AMINO TRANSFERASE 20 U/L (10-37); BILIRUBIN,TOTAL 0.3 MG/DL (0.1-1.0); BLOOD UREA NITROGEN 12 MG/DL (7-18); BUN/CREATININE RATIO 15.4 (6.6-38.0); CALCIUM 8.7 MG/DL (8.5-10.1); CHLORIDE 111 MMOL/L (99-107); CREATININE 0.78 MG/DL (0.40-0.90); GLUCOSE 88 MG/DL (70-104); POTASSIUM 3.5 MMOL/L (3.5-5.1); SODIUM 146 MMOL/L (135-145); TOTAL CARBON DIOXIDE 24.1 MMOL/L (24-32); TOTAL PROTEIN 6.4 G/DL (6.4-8.2); eGFR 74 ML/MIN
[2019-04-03] MEDS ORDERED: METR-159 PO (18:40)
[2019-04-03 19:09] VITALS: BP 170/71
[2019-04-04 07:49] LABS: C DIFF ANTIGEN POSITIVE (NEGATIVE); C DIFF SPECIMEN=DIARRHEA? ACCEPTABLE; C DIFFICILE TOXINS A&B POSITIVE (Neg)
== END 2019-04-03 19:10 | disposition home or self-care (01) ==
LOC: ER 14:06
DX: R19.7 Diarrhea, unspecified (principal); I48.91 Unspecified atrial fibrillation; I25.10 Atherosclerotic heart disease of native coronary artery without angina pectoris; E78.00 Pure hypercholesterolemia, unspecified; I10 Essential (primary) hypertension; I25.2 Old myocardial infarction; J44.9 Chronic obstructive pulmonary disease, unspecified; K21.9 Gastro-esophageal reflux disease without esophagitis; G89.29 Other chronic pain; F31.9 Bipolar disorder, unspecified; F12.90 Cannabis use, unspecified, uncomplicated; Z86.73 Personal history of transient ischemic attack (TIA), and cerebral infarction without residual deficits; Z86.69 Personal history of other diseases of the nervous system and sense organs; Z98.61 Coronary angioplasty status; Z90.49 Acquired absence of other specified parts of digestive tract; Z95.1 Presence of aortocoronary bypass graft; Z90.710 Acquired absence of both cervix and uterus; Z95.0 Presence of cardiac pacemaker; Z98.890 Other specified postprocedural states; Z79.82 Long term (current) use of aspirin; Z79.899 Other long term (current) drug therapy
CPT/HCPCS: 36415; 80053; 85025; 87324; 87449; 96360; 99283; J7030

== ENCOUNTER 2019-04-19 09:20 | Emergency (ER) | payer MEDICARE, BC ==
[~2019-04-19] VITALS: Ht 160 cm; Wt 63.0 kg
[2019-04-19 10:24] LABS: CLARITY,URINE CLEAR (Clear); COLOR,URINE YELLOW (Yellow); GLUCOSE, URINE NEGATIVE (Neg); KETONES,URINE NEGATIVE (Neg); LEUKOCYTE ESTERASE ,URINE TRACE (Neg); NITRITES, URINE NEGATIVE (Neg); OCCULT BLOOD,URINE MODERATE (Neg); PROTEIN,URINE NEGATIVE (Neg); UROBILINOGEN,URINE 0.2 E.U/dL (0.2-1.0)
[2019-04-19 10:24] LABS: BASOPHILS % (AUTO) 0.5 % (0-1); EOSINOPHILS % (AUTO) 1.1 % (0-6); HEMATOCRIT 42.1 % (35.0-45.0); HEMOGLOBIN 14.3 g/dl (12.0-16.0); LYMPHOCYTES # (AUTO) 1.7 X10'3 (1.1-4.8); LYMPHOCYTES % (AUTO) 36.4 % (21-51); MEAN CORPUSCULAR HEMOGLOBIN 31.3 PG (27.0-31.0); MEAN CORPUSCULAR HGB CONC 33.9 g/dL (33.0-36.5); MEAN CORPUSCULAR VOLUME 92.4 FL (78-98); MEAN PLATELET VOLUME 7.3 FL (7.4-10.4); MONOCYTES # (AUTO) 0.3 X10'3 (0-0.9); MONOCYTES % (AUTO) 6.3 % (2-12); NEUTROPHILS # (AUTO) 2.6 X10'3 (1.8-7.7); NEUTROPHILS % (AUTO) 55.7 % (42-75); PLATELET COUNT 227 X10'3 (140-440); RED BLOOD COUNT 4.56 X10'6 (4.20-5.60); RED CELL DISTRIBUTION WIDTH 14.8 % (11.5-14.5); WHITE BLOOD COUNT 4.6 X10'3 (4.5-11.0)
[2019-04-19 10:28] LABS: UA COLLECTION TYPE STRAIGHT CATH
[2019-04-19 10:29] LABS: BACTERIA,URINE FEW /HPF (Neg); MUCUS STRANDS FEW /LPF (Neg); SQUAMOUS EPITHELIAL CELL,UR MODERATE /LPF (FEW); WBC,URINE 0-4 /HPF (0-4)
[2019-04-19] MEDS ORDERED: ondansetron/PF 4mg/2ml inj IV ONE (10:35)
[2019-04-19] MEDS ORDERED: morphine 4 MG/ML inj SYRINge IV ONE (10:35)
[2019-04-19 10:41] LABS: ALANINE AMINOTRANSFERASE 39 U/L (12-78); ALBUMIN 3.8 G/DL (3.4-5.0); ALBUMIN/GLOBULIN RATIO 1.5 (1.1-1.5); ALKALINE PHOSPHATASE 86 IU/L (46-116); ANION GAP 8 (8-16); ASPARTATE AMINO TRANSFERASE 42 U/L (10-37); BILIRUBIN,TOTAL 0.4 MG/DL (0.1-1.0); BLOOD UREA NITROGEN 9 MG/DL (7-18); BUN/CREATININE RATIO 11.1 (6.6-38.0); CALCIUM 9.3 MG/DL (8.5-10.1); CHLORIDE 112 MMOL/L (99-107); CREATININE 0.81 MG/DL (0.40-0.90); GLUCOSE 100 MG/DL (70-104); LIPASE 160 U/L (73-393); POTASSIUM 3.9 MMOL/L (3.5-5.1); SODIUM 146 MMOL/L (135-145); TOTAL CARBON DIOXIDE 25.9 MMOL/L (24-32); TOTAL PROTEIN 6.3 G/DL (6.4-8.2); eGFR 71 ML/MIN
--- NOTE | 2019-04-19 10:56 | NUR ---
Gave patient warm blanket. Pt denies any further needs at this time.
[2019-04-19] MEDS ORDERED: ONDA4TAB6 PO (12:37)
[2019-04-19] MEDS ORDERED: HYDR-3965 PO (12:37)
[2019-04-19] MEDS ORDERED: PHEN-716 PO (12:42)
[2019-04-19 12:53] VITALS: BP 154/78
== END 2019-04-19 13:05 | disposition home or self-care (01) ==
LOC: ER 09:21
DX: R33.9 Retention of urine, unspecified (principal); A04.72 Enterocolitis due to Clostridium difficile, not specified as recurrent; I48.91 Unspecified atrial fibrillation; I25.10 Atherosclerotic heart disease of native coronary artery without angina pectoris; E78.00 Pure hypercholesterolemia, unspecified; I10 Essential (primary) hypertension; I25.2 Old myocardial infarction; K21.9 Gastro-esophageal reflux disease without esophagitis; G89.29 Other chronic pain; F31.9 Bipolar disorder, unspecified; F12.90 Cannabis use, unspecified, uncomplicated; Z86.73 Personal history of transient ischemic attack (TIA), and cerebral infarction without residual deficits; Z86.69 Personal history of other diseases of the nervous system and sense organs; Z98.61 Coronary angioplasty status; Z90.49 Acquired absence of other specified parts of digestive tract; Z95.1 Presence of aortocoronary bypass graft; Z95.0 Presence of cardiac pacemaker; Z98.890 Other specified postprocedural states; Z79.82 Long term (current) use of aspirin; Z79.899 Other long term (current) drug therapy
CPT/HCPCS: 36415; 51701; 74176; 80053; 81001; 83690; 85025; 87088; 99284; J2270; J2405

== ENCOUNTER 2020-01-20 03:01 | Emergency (ER) | payer MEDICARE, BC ==
[~2020-01-20] VITALS: Ht 160 cm; Wt 63.7 kg
[~2020-01-20 03:01] MED LIST changes: +ONDA4TAB6 PO; +PHEN-716 PO
[2020-01-20 03:37] LABS: BASOPHILS % (AUTO) 0.8 % (0-1); EOSINOPHILS # (AUTO) 0.1 X10'3 (0-0.9); EOSINOPHILS % (AUTO) 1.5 % (0-6); HEMOGLOBIN 12.6 g/dl (12.0-16.0); LYMPHOCYTES # (AUTO) 1.7 X10'3 (1.1-4.8); LYMPHOCYTES % (AUTO) 29.2 % (21-51); MEAN CORPUSCULAR HEMOGLOBIN 30.4 PG (27.0-31.0); MEAN CORPUSCULAR HGB CONC 33.2 g/dL (33.0-36.5); MEAN CORPUSCULAR VOLUME 91.5 FL (78-98); MEAN PLATELET VOLUME 7.5 FL (7.4-10.4); MONOCYTES # (AUTO) 0.3 X10'3 (0-0.9); MONOCYTES % (AUTO) 5.2 % (2-12); NEUTROPHILS # (AUTO) 3.6 X10'3 (1.8-7.7); NEUTROPHILS % (AUTO) 63.3 % (42-75); PLATELET COUNT 159 X10'3 (140-440); RED BLOOD COUNT 4.15 X10'6 (4.20-5.60); RED CELL DISTRIBUTION WIDTH 15.2 % (11.5-14.5); WHITE BLOOD COUNT 5.7 X10'3 (4.5-11.0)
[2020-01-20 03:44] LABS: CLARITY,URINE CLOUDY (Clear); COLOR,URINE RED (Yellow); GLUCOSE, URINE NEGATIVE (Neg); KETONES,URINE NEGATIVE (Neg); LEUKOCYTE ESTERASE ,URINE MODERATE (Neg); NITRITES, URINE NEGATIVE (Neg); OCCULT BLOOD,URINE LARGE (Neg); PROTEIN,URINE 100 mg/dl (Neg)
[2020-01-20 03:47] LABS: UA COLLECTION TYPE CLN CATCH MIDSTREAM
[2020-01-20 03:52] LABS: ALANINE AMINOTRANSFERASE 18 U/L (12-78); ALBUMIN 3.8 G/DL (3.4-5.0); ALBUMIN/GLOBULIN RATIO 1.5 (1.1-1.5); ALKALINE PHOSPHATASE 104 IU/L (46-116); ANION GAP 7 (8-16); ASPARTATE AMINO TRANSFERASE 16 U/L (10-37); BILIRUBIN,TOTAL 0.3 MG/DL (0.1-1.0); BLOOD UREA NITROGEN 12 MG/DL (7-18); BUN/CREATININE RATIO 14.5 (6.6-38.0); CALCIUM 9.2 MG/DL (8.5-10.1); CHLORIDE 109 MMOL/L (99-107); CREATININE 0.83 MG/DL (0.40-0.90); GLUCOSE 92 MG/DL (70-104); LIPASE 146 U/L (73-393); POTASSIUM 3.7 MMOL/L (3.5-5.1); SODIUM 144 MMOL/L (135-145); TOTAL CARBON DIOXIDE 27.7 MMOL/L (24-32); TOTAL PROTEIN 6.4 G/DL (6.4-8.2); eGFR 68 ML/MIN
[2020-01-20 03:57] LABS: BACTERIA,URINE 2+ /HPF (Neg); MUCUS STRANDS FEW /LPF (Neg); RBC,URINE TNTC /HPF (0-2); SQUAMOUS EPITHELIAL CELL,UR FEW /LPF (FEW); WBC,URINE TNTC /HPF (0-4)
[2020-01-20] MEDS ORDERED: CefTRIAXone 2gm/D5W 50ml BAG 50 ML IV ONE (05:45)
[2020-01-20] MEDS ORDERED: morphine 4 MG/ML inj SYRINge IV ONE (05:45)
[2020-01-20] MEDS ORDERED: ondansetron/PF 4mg/2ml inj IV ONE (05:45)
[2020-01-20 06:44] VITALS: BP 146/65
== END 2020-01-20 06:40 | disposition home or self-care (01) ==
LOC: ER 03:02
DX: N39.0 Urinary tract infection, site not specified (principal); R31.9 Hematuria, unspecified; R10.30 Lower abdominal pain, unspecified; I48.91 Unspecified atrial fibrillation; I25.10 Atherosclerotic heart disease of native coronary artery without angina pectoris; E78.00 Pure hypercholesterolemia, unspecified; I10 Essential (primary) hypertension; I25.2 Old myocardial infarction; J44.9 Chronic obstructive pulmonary disease, unspecified; K21.9 Gastro-esophageal reflux disease without esophagitis; G89.29 Other chronic pain; F31.9 Bipolar disorder, unspecified; F12.90 Cannabis use, unspecified, uncomplicated; Z86.73 Personal history of transient ischemic attack (TIA), and cerebral infarction without residual deficits; Z86.69 Personal history of other diseases of the nervous system and sense organs; Z87.11 Personal history of peptic ulcer disease; Z87.440 Personal history of urinary (tract) infections; Z90.89 Acquired absence of other organs; Z90.49 Acquired absence of other specified parts of digestive tract; Z98.890 Other specified postprocedural states; Z95.0 Presence of cardiac pacemaker; Z90.710 Acquired absence of both cervix and uterus; Z79.82 Long term (current) use of aspirin; Z79.899 Other long term (current) drug therapy; Z79.2 Long term (current) use of antibiotics
CPT/HCPCS: 36415; 74176; 80053; 81001; 83690; 85025; 87077; 87088; 87186; 96365; 96375; 99284; J0696; J2270; J2405

== ENCOUNTER 2020-03-08 14:44 | Emergency (ER) | payer MEDICARE, BC ==
[~2020-03-08] VITALS: Ht 160 cm; Wt 59.0 kg
[2020-03-08 15:20] VITALS: BP 134/41
[2020-03-08] MEDS ORDERED: TRAM50TA2 PO (15:35)
[2020-03-08] MEDS ORDERED: CEPH250T PO (15:35)
== END 2020-03-08 16:05 | disposition home or self-care (01) ==
LOC: ER 14:45
DX: L03.031 Cellulitis of right toe (principal); I25.10 Atherosclerotic heart disease of native coronary artery without angina pectoris; I13.10 Hypertensive heart and chronic kidney disease without heart failure, with stage 1 through stage 4 chronic kidney disease, or unspecified chronic kidney disease; N18.9 Chronic kidney disease, unspecified; F31.9 Bipolar disorder, unspecified; F32.9 Major depressive disorder, single episode, unspecified; Z79.899 Other long term (current) drug therapy
CPT/HCPCS: 73630; 99283

== ENCOUNTER 2020-06-30 18:35 | Emergency (ER) | payer MEDICARE, BC ==
[~2020-06-30] VITALS: Ht 160 cm; Wt 63.6 kg
[2020-06-30] MEDS ORDERED: normal saline 1000ML IV soln IVB ONE (18:40)
[2020-06-30 19:17] LABS: BASOPHILS % (AUTO) 0.3 % (0-1); EOSINOPHILS # (AUTO) 0.1 X10'3 (0-0.9); EOSINOPHILS % (AUTO) 1.3 % (0-6); HEMATOCRIT 27.9 % (35.0-45.0); HEMOGLOBIN 9.1 g/dl (12.0-16.0); LYMPHOCYTES # (AUTO) 1.1 X10'3 (1.1-4.8); LYMPHOCYTES % (AUTO) 25.7 % (21-51); MEAN CORPUSCULAR HEMOGLOBIN 28.5 PG (27.0-31.0); MEAN CORPUSCULAR HGB CONC 32.5 g/dL (33.0-36.5); MEAN CORPUSCULAR VOLUME 87.7 FL (78-98); MONOCYTES # (AUTO) 0.3 X10'3 (0-0.9); MONOCYTES % (AUTO) 6.6 % (2-12); NEUTROPHILS # (AUTO) 2.9 X10'3 (1.8-7.7); NEUTROPHILS % (AUTO) 66.1 % (42-75); PLATELET COUNT 223 X10'3 (140-440); RED BLOOD COUNT 3.18 X10'6 (4.20-5.60); RED CELL DISTRIBUTION WIDTH 16.1 % (11.5-14.5); WHITE BLOOD COUNT 4.4 X10'3 (4.5-11.0)
[2020-06-30 19:21] LABS: ALANINE AMINOTRANSFERASE 18 U/L (12-78); ALBUMIN 3.5 G/DL (3.4-5.0); ALBUMIN/GLOBULIN RATIO 1.3 (1.1-1.5); ALKALINE PHOSPHATASE 103 IU/L (46-116); ANION GAP 7 (8-16); ASPARTATE AMINO TRANSFERASE 13 U/L (10-37); BILIRUBIN,TOTAL 0.3 MG/DL (0.1-1.0); BLOOD UREA NITROGEN 17 MG/DL (7-18); BUN/CREATININE RATIO 14.4 (6.6-38.0); CALCIUM 8.9 MG/DL (8.5-10.1); CHLORIDE 110 MMOL/L (99-107); CREATININE 1.18 MG/DL (0.40-0.90); GLUCOSE 110 MG/DL (70-104); POTASSIUM 3.7 MMOL/L (3.5-5.1); SODIUM 145 MMOL/L (135-145); TOTAL CARBON DIOXIDE 27.7 MMOL/L (24-32); TOTAL PROTEIN 6.1 G/DL (6.4-8.2); eGFR 46 ML/MIN
--- NOTE | 2020-06-30 19:21 | NUR ---
PT REFUSING A STRAIGHT CATH, DR STOVALL NOTIFED.
[2020-06-30 19:28] LABS: MAGNESIUM 1.9 MG/DL (1.5-2.4)
[2020-06-30 20:02] LABS: CLARITY,URINE SLIGHTLY CLOUDY (Clear); COLOR,URINE YELLOW (Yellow); GLUCOSE, URINE NEGATIVE (Neg); KETONES,URINE NEGATIVE (Neg); LEUKOCYTE ESTERASE ,URINE NEGATIVE (Neg); NITRITES, URINE NEGATIVE (Neg); OCCULT BLOOD,URINE NEGATIVE (Neg); PROTEIN,URINE NEGATIVE (Neg); UROBILINOGEN,URINE 0.2 E.U/dL (0.2-1.0)
[2020-06-30 20:03] LABS: UA COLLECTION TYPE CLN CATCH MIDSTREAM
[2020-06-30 20:11] LABS: BACTERIA,URINE NONE SEEN /HPF (Neg); MUCUS STRANDS FEW /LPF (Neg); RBC,URINE NONE SEEN /HPF (0-2); SQUAMOUS EPITHELIAL CELL,UR FEW /LPF (FEW); WBC,URINE 0-4 /HPF (0-4)
[2020-06-30 20:19] VITALS: BP 151/56
== END 2020-06-30 20:21 | disposition home or self-care (01) ==
LOC: ER 18:35
DX: R07.89 Other chest pain (principal); E86.0 Dehydration; R55 Syncope and collapse; I48.91 Unspecified atrial fibrillation; I25.10 Atherosclerotic heart disease of native coronary artery without angina pectoris; E78.00 Pure hypercholesterolemia, unspecified; I10 Essential (primary) hypertension; I25.2 Old myocardial infarction; J44.9 Chronic obstructive pulmonary disease, unspecified; K21.9 Gastro-esophageal reflux disease without esophagitis; G89.29 Other chronic pain; F31.9 Bipolar disorder, unspecified; F12.90 Cannabis use, unspecified, uncomplicated; Z86.73 Personal history of transient ischemic attack (TIA), and cerebral infarction without residual deficits; Z86.69 Personal history of other diseases of the nervous system and sense organs; Z87.11 Personal history of peptic ulcer disease; Z87.440 Personal history of urinary (tract) infections; Z90.89 Acquired absence of other organs; Z90.49 Acquired absence of other specified parts of digestive tract; Z90.710 Acquired absence of both cervix and uterus; Z95.0 Presence of cardiac pacemaker; Z98.890 Other specified postprocedural states; Z95.1 Presence of aortocoronary bypass graft; Z79.82 Long term (current) use of aspirin; Z79.899 Other long term (current) drug therapy
CPT/HCPCS: 36415; 71045; 80053; 81001; 83735; 83880; 84484; 85025; 93005; 99285; J7030

== ENCOUNTER 2020-09-10 09:27 | Inpatient (IN) | payer MEDICARE, BC ==
[~2020-09-10] VITALS: Ht 160 cm; Wt 63.6 kg
[~2020-09-10 09:27] MED LIST changes: +MIRT-87 PO; -MIRT15TA8 PO
[2020-09-10] MEDS ORDERED: diazepam inj 5 MG/ML inj. IM ONE (10:25)
[2020-09-10] MEDS ORDERED: aspirin 81mg tab.chew PO ONE (10:25)
[2020-09-10 10:48] LABS: BASOPHILS % (AUTO) 0.6 % (0-1); EOSINOPHILS # (AUTO) 0.1 X10'3 (0-0.9); EOSINOPHILS % (AUTO) 2.1 % (0-6); HEMATOCRIT 33.6 % (35.0-45.0); HEMOGLOBIN 10.8 g/dl (12.0-16.0); LYMPHOCYTES % (AUTO) 25.1 % (21-51); MEAN CORPUSCULAR HEMOGLOBIN 25.1 PG (27.0-31.0); MEAN CORPUSCULAR HGB CONC 32.1 g/dL (33.0-36.5); MEAN CORPUSCULAR VOLUME 78.4 FL (78-98); MEAN PLATELET VOLUME 7.8 FL (7.4-10.4); MONOCYTES # (AUTO) 0.2 X10'3 (0-0.9); MONOCYTES % (AUTO) 5.7 % (2-12); NEUTROPHILS # (AUTO) 2.7 X10'3 (1.8-7.7); NEUTROPHILS % (AUTO) 66.5 % (42-75); PLATELET COUNT 167 X10'3 (140-440); RED BLOOD COUNT 4.28 X10'6 (4.20-5.60); RED CELL DISTRIBUTION WIDTH 18.8 % (11.5-14.5); WHITE BLOOD COUNT 4.1 X10'3 (4.5-11.0)
[2020-09-10 11:03] LABS: ALANINE AMINOTRANSFERASE 22 U/L (12-78); ALBUMIN 3.8 G/DL (3.4-5.0); ALBUMIN/GLOBULIN RATIO 1.4 (1.1-1.5); ALKALINE PHOSPHATASE 104 IU/L (46-116); ANION GAP 8 (8-16); ASPARTATE AMINO TRANSFERASE 25 U/L (10-37); BILIRUBIN,TOTAL 0.3 MG/DL (0.1-1.0); BLOOD UREA NITROGEN 15 MG/DL (7-18); CALCIUM 8.9 MG/DL (8.5-10.1); CHLORIDE 109 MMOL/L (99-107); CREATININE 1.15 MG/DL (0.40-0.90); GLUCOSE 92 MG/DL (70-104); SODIUM 143 MMOL/L (135-145); TOTAL CARBON DIOXIDE 26.4 MMOL/L (24-32); TOTAL PROTEIN 6.5 G/DL (6.4-8.2); eGFR 47 ML/MIN
[2020-09-10 11:05] LABS: POTASSIUM 6.3 MMOL/L (3.5-5.1)
--- NOTE | 2020-09-10 11:10 | NUR ---
Dr. Cheney aware of patient's critical K result. New order for lab draw has been taken.
[2020-09-10 11:19] LABS: ANISOCYTOSIS 2+; MICROCYTOSIS 1+; PLATELET ESTIMATE NORMAL; POLYCHROMASIA 1+
[2020-09-10 12:44] LABS: CREATINE KINASE 62 U/L (26-192)
[2020-09-10] MEDS: sodium bicarbonate (8.4%) inj. 100 MEQ in dextrose 5%-water 1,000 ML IV SCH ×2 (13:09→16:12)
[2020-09-10] MEDS ORDERED: magnesium hydroxide 30ml (MOM) UD suspension PO PRN (13:25)
[2020-09-10] MEDS ORDERED: acetaminophen 325mg tablet PO PRN ×2 (13:25)
[2020-09-10] MEDS ORDERED: ondansetron/PF 4mg/2ml inj IV PRN (13:25)
[2020-09-10] MEDS ORDERED: morphine 2 MG/ML inj. syringe IV PRN ×2 (13:25)
[2020-09-10] MEDS ORDERED: HYDROcodone/acetaminophen 5mg/325mg tablet PO PRN (13:25)
[2020-09-10] MEDS ORDERED: sodium polystyrene sulfonate 15gm/60ml oral suspension PO ONE (13:25)
[2020-09-10] MEDS ORDERED: mag hydrox/Alum hydrox/simeth 30ml oral suspension PO PRN (13:25)
[2020-09-10] MEDS ORDERED: HYDROcodone/acetaminophen 10/325mg tab PO PRN (13:25)
--- NOTE | 2020-09-10 13:25 | NUR ---
Dr. Box at bedside.verbal order received for BMP and Na and K in urine.
[2020-09-10] MEDS ORDERED: SOTA80TA10 PO (13:52)
[2020-09-10] MEDS ORDERED: RIVA20TA PO (13:52)
[2020-09-10] MEDS ORDERED: ATOR40TA71 PO (13:52)
[2020-09-10] MEDS ORDERED: MELO-102 PO (13:52)
[2020-09-10] MEDS ORDERED: DIAZ5TAB23 PO (13:52)
[2020-09-10] MEDS ORDERED: PRAM1.5T7 PO (13:57)
[2020-09-10 14:08] LABS: ALBUMIN 3.7 G/DL (3.4-5.0); ANION GAP 6 (8-16); BLOOD UREA NITROGEN 15 MG/DL (7-18); BUN/CREATININE RATIO 13.5 (6.6-38.0); CALCIUM 8.9 MG/DL (8.5-10.1); CHLORIDE 109 MMOL/L (99-107); CREATININE 1.11 MG/DL (0.40-0.90); GLUCOSE 91 MG/DL (70-104); POTASSIUM 5.8 MMOL/L (3.5-5.1); SODIUM 143 MMOL/L (135-145); TOTAL CARBON DIOXIDE 27.8 MMOL/L (24-32); eGFR 49 ML/MIN
--- NOTE | 2020-09-10 15:10 | NUR ---
Report received from ED RN, Priya.
[2020-09-10 16:00] VITALS: BP 151/60
[2020-09-10] MEDS ORDERED: KAY15L PO (17:47)
--- NOTE | 2020-09-10 18:00 | NUR ---
Problems reprioritized. Patient report given, questions answered & plan of care reviewed with APRIL Price.
--- NOTE | 2020-09-10 18:15 | NUR ---
Patient in room MED 310. I have received report from UMM CHEN and had the opportunity to ask questions and assume patient care.
[2020-09-10 18:22] VITALS: BP 141/53
== END 2020-09-10 18:49 | disposition home or self-care (01) | DRG 641 ==
LOC: ER 09:28 → ED HOLD 13:25 → MED 3N 15:43
PROVIDERS: ADMIT Internal Medicine; ATTEND Internal Medicine
DX: E87.5 Hyperkalemia (principal); E78.00 Pure hypercholesterolemia, unspecified; E78.5 Hyperlipidemia, unspecified; I10 Essential (primary) hypertension; I25.10 Atherosclerotic heart disease of native coronary artery without angina pectoris; I48.0 Paroxysmal atrial fibrillation; J44.9 Chronic obstructive pulmonary disease, unspecified; Z96.612 Presence of left artificial shoulder joint; F12.90 Cannabis use, unspecified, uncomplicated; F32.9 Major depressive disorder, single episode, unspecified; R19.7 Diarrhea, unspecified; G89.29 Other chronic pain; W18.39XA Other fall on same level, initial encounter; K21.9 Gastro-esophageal reflux disease without esophagitis; K72.90 Hepatic failure, unspecified without coma; F17.210 Nicotine dependence, cigarettes, uncomplicated; Z86.73 Personal history of transient ischemic attack (TIA), and cerebral infarction without residual deficits; I25.2 Old myocardial infarction; Z87.11 Personal history of peptic ulcer disease; Z90.49 Acquired absence of other specified parts of digestive tract; Z90.710 Acquired absence of both cervix and uterus; Z95.1 Presence of aortocoronary bypass graft; Z79.01 Long term (current) use of anticoagulants; Z95.5 Presence of coronary angioplasty implant and graft; Z95.0 Presence of cardiac pacemaker; Y93.E2 Activity, laundry; Y92.89 Other specified places as the place of occurrence of the external cause; Y99.8 Other external cause status; Z79.899 Other long term (current) drug therapy
CPT/HCPCS: 36415; 71045; 80048; 80053; 82550; 83880; 84132; 84484; 85008; 85025; 87081; 93005; 96365; 96372; 99285; G0378; J3360

== ENCOUNTER 2020-09-13 00:53 | Emergency (ER) | payer MEDICARE, BC ==
[~2020-09-13] VITALS: Ht 162.6 cm; Wt 63.6 kg
[~2020-09-13 00:53] MED LIST changes: -ASPI-1265 PO; +ATOR40TA71 PO; -BUSP10TA11 PO; -CLOP75TA15 PO; +DIAZ5TAB23 PO; -DIVA-76 PO; -HYDR-3964 PO; -IBUP-24 PO; +KAY15L PO; +MELO-102 PO; -METH1TAB32 PO; -MIRT-87 PO; -NICO-631 TP; -NITR0.4T51 SL; -ONDA4TAB6 PO; -PHEN-716 PO; -PRAM0.5T12 PO; +PRAM1.5T7 PO; -PRAV80TA3 PO; -QUET-1 PO; +RIVA20TA PO; +SOTA80TA10 PO; -VANC125C11 PO
[2020-09-13] MEDS ORDERED: ketorolac tromethamine 15mg/ml inj. IV ONE (02:05)
[2020-09-13 02:11] VITALS: BP 117/55
[2020-09-13 02:30] LABS: BASOPHILS % (AUTO) 0.3 % (0-1); EOSINOPHILS # (AUTO) 0.1 X10'3 (0-0.9); EOSINOPHILS % (AUTO) 2.6 % (0-6); HEMATOCRIT 31.8 % (35.0-45.0); LYMPHOCYTES # (AUTO) 1.8 X10'3 (1.1-4.8); LYMPHOCYTES % (AUTO) 34.1 % (21-51); MEAN CORPUSCULAR HEMOGLOBIN 25.3 PG (27.0-31.0); MEAN CORPUSCULAR HGB CONC 31.4 g/dL (33.0-36.5); MEAN CORPUSCULAR VOLUME 80.6 FL (78-98); MEAN PLATELET VOLUME 8.6 FL (7.4-10.4); MONOCYTES # (AUTO) 0.4 X10'3 (0-0.9); MONOCYTES % (AUTO) 7.3 % (2-12); NEUTROPHILS # (AUTO) 2.9 X10'3 (1.8-7.7); NEUTROPHILS % (AUTO) 55.7 % (42-75); PLATELET COUNT 171 X10'3 (140-440); RED BLOOD COUNT 3.95 X10'6 (4.20-5.60); RED CELL DISTRIBUTION WIDTH 20.1 % (11.5-14.5); WHITE BLOOD COUNT 5.3 X10'3 (4.5-11.0)
[2020-09-13 02:44] LABS: ALANINE AMINOTRANSFERASE 22 U/L (12-78); ALBUMIN 3.5 G/DL (3.4-5.0); ALBUMIN/GLOBULIN RATIO 1.4 (1.1-1.5); ALKALINE PHOSPHATASE 89 IU/L (46-116); ANION GAP 6 (8-16); ASPARTATE AMINO TRANSFERASE 19 U/L (10-37); BILIRUBIN,TOTAL 0.3 MG/DL (0.1-1.0); BLOOD UREA NITROGEN 21 MG/DL (7-18); BUN/CREATININE RATIO 17.4 (6.6-38.0); CALCIUM 8.5 MG/DL (8.5-10.1); CHLORIDE 112 MMOL/L (99-107); CREATININE 1.21 MG/DL (0.40-0.90); GLUCOSE 81 MG/DL (70-104); POTASSIUM 4.4 MMOL/L (3.5-5.1); SODIUM 146 MMOL/L (135-145); TOTAL CARBON DIOXIDE 27.7 MMOL/L (24-32); eGFR 44 ML/MIN
[2020-09-13 02:55] LABS: MAGNESIUM 1.9 MG/DL (1.5-2.4)
--- NOTE | 2020-09-13 04:11 | NUR ---
Called both cell #s provided and called, message left, other mail box full. Awaiting call back. Costa, : [phone]
[2020-09-13 05:40] LABS: ANISOCYTOSIS 3+; PLATELET ESTIMATE NORMAL
== END 2020-09-13 04:56 | disposition home or self-care (01) ==
LOC: ER 00:54
DX: R07.89 Other chest pain (principal); M79.601 Pain in right arm; I25.10 Atherosclerotic heart disease of native coronary artery without angina pectoris; I25.2 Old myocardial infarction; I48.91 Unspecified atrial fibrillation; Z95.1 Presence of aortocoronary bypass graft; G40.909 Epilepsy, unspecified, not intractable, without status epilepticus; E78.00 Pure hypercholesterolemia, unspecified; I10 Essential (primary) hypertension; J44.9 Chronic obstructive pulmonary disease, unspecified; K21.9 Gastro-esophageal reflux disease without esophagitis; G89.29 Other chronic pain; F17.210 Nicotine dependence, cigarettes, uncomplicated; Z90.49 Acquired absence of other specified parts of digestive tract; Z98.890 Other specified postprocedural states; Z90.710 Acquired absence of both cervix and uterus; Z79.899 Other long term (current) drug therapy; Z79.82 Long term (current) use of aspirin
CPT/HCPCS: 71045; 80053; 83735; 83880; 84484; 85008; 85025; 93005; 96374; 99285; J1885

== ENCOUNTER 2020-11-16 17:30 | Emergency (ER) | payer MEDICARE, BC ==
[~2020-11-16] VITALS: Ht 160 cm; Wt 140.0 kg
[~2020-11-16 17:30] MED LIST changes: -KAY15L PO
[2020-11-16 18:07] LABS: BASOPHILS % (AUTO) 0.9 % (0-1); EOSINOPHILS # (AUTO) 0.1 X10'3 (0-0.9); EOSINOPHILS % (AUTO) 2.4 % (0-6); HEMATOCRIT 38.9 % (35.0-45.0); HEMOGLOBIN 12.7 g/dl (12.0-16.0); LYMPHOCYTES % (AUTO) 43.3 % (21-51); MEAN CORPUSCULAR HEMOGLOBIN 27.3 PG (27.0-31.0); MEAN CORPUSCULAR HGB CONC 32.7 g/dL (33.0-36.5); MEAN CORPUSCULAR VOLUME 83.5 FL (78-98); MEAN PLATELET VOLUME 7.8 FL (7.4-10.4); MONOCYTES # (AUTO) 0.4 X10'3 (0-0.9); MONOCYTES % (AUTO) 8.3 % (2-12); NEUTROPHILS # (AUTO) 2.1 X10'3 (1.8-7.7); NEUTROPHILS % (AUTO) 45.1 % (42-75); PLATELET COUNT 187 X10'3 (140-440); RED BLOOD COUNT 4.66 X10'6 (4.20-5.60); RED CELL DISTRIBUTION WIDTH 21.2 % (11.5-14.5); WHITE BLOOD COUNT 4.7 X10'3 (4.5-11.0)
[2020-11-16 18:21] LABS: ALBUMIN 3.9 G/DL (3.4-5.0); ANION GAP 12 (8-16); BLOOD UREA NITROGEN 14 MG/DL (7-18); BUN/CREATININE RATIO 13.1 (6.6-38.0); CALCIUM 9.1 MG/DL (8.5-10.1); CHLORIDE 108 MMOL/L (99-107); CREATININE 1.07 MG/DL (0.40-0.90); GLUCOSE 85 MG/DL (70-104); POTASSIUM 4.6 MMOL/L (3.5-5.1); SODIUM 144 MMOL/L (135-145); TOTAL CARBON DIOXIDE 24.4 MMOL/L (24-32); eGFR 51 ML/MIN
[2020-11-16 20:07] LABS: ANISOCYTOSIS 3+; PLATELET ESTIMATE NORMAL
--- NOTE | 2020-11-16 20:34 | NUR ---
patient wants to leave ama, Dr. Carreon aware. patient signed ama form.
[2020-11-16 20:36] VITALS: BP 167/85
== END 2020-11-16 21:01 | disposition left against medical advice (07) ==
LOC: ER 17:30
DX: R07.89 Other chest pain (principal); R42 Dizziness and giddiness; R11.0 Nausea; I48.91 Unspecified atrial fibrillation; I25.10 Atherosclerotic heart disease of native coronary artery without angina pectoris; E78.00 Pure hypercholesterolemia, unspecified; I10 Essential (primary) hypertension; I25.2 Old myocardial infarction; J44.9 Chronic obstructive pulmonary disease, unspecified; K21.9 Gastro-esophageal reflux disease without esophagitis; G89.29 Other chronic pain; F31.9 Bipolar disorder, unspecified; F12.90 Cannabis use, unspecified, uncomplicated; Z86.73 Personal history of transient ischemic attack (TIA), and cerebral infarction without residual deficits; Z86.69 Personal history of other diseases of the nervous system and sense organs; Z87.11 Personal history of peptic ulcer disease; Z87.440 Personal history of urinary (tract) infections; Z90.89 Acquired absence of other organs; Z90.49 Acquired absence of other specified parts of digestive tract; Z90.710 Acquired absence of both cervix and uterus; Z95.0 Presence of cardiac pacemaker; Z98.890 Other specified postprocedural states; Z95.1 Presence of aortocoronary bypass graft; Z79.899 Other long term (current) drug therapy
CPT/HCPCS: 36415; 71045; 80048; 84484; 85008; 85025; 93005; 99285

== ENCOUNTER 2021-01-16 08:36 | Inpatient (IN) | payer MEDICARE, BC ==
[~2021-01-16] VITALS: Ht 160 cm; Wt 70.0 kg
[2021-01-16 09:34] LABS: BASOPHILS % (AUTO) 0.3 % (0-1); EOSINOPHILS # (AUTO) 0.1 X10'3 (0-0.9); EOSINOPHILS % (AUTO) 1.1 % (0-6); HEMATOCRIT 38.5 % (35.0-45.0); HEMOGLOBIN 13.1 g/dl (12.0-16.0); LYMPHOCYTES # (AUTO) 1.3 X10'3 (1.1-4.8); LYMPHOCYTES % (AUTO) 28.2 % (21-51); MEAN CORPUSCULAR HEMOGLOBIN 30.3 PG (27.0-31.0); MEAN CORPUSCULAR VOLUME 89.1 FL (78-98); MEAN PLATELET VOLUME 7.4 FL (7.4-10.4); MONOCYTES # (AUTO) 0.4 X10'3 (0-0.9); MONOCYTES % (AUTO) 8.7 % (2-12); NEUTROPHILS # (AUTO) 2.9 X10'3 (1.8-7.7); NEUTROPHILS % (AUTO) 61.7 % (42-75); PLATELET COUNT 157 X10'3 (140-440); RED BLOOD COUNT 4.32 X10'6 (4.20-5.60); RED CELL DISTRIBUTION WIDTH 16.2 % (11.5-14.5); WHITE BLOOD COUNT 4.7 X10'3 (4.5-11.0)
[2021-01-16 09:47] LABS: ALANINE AMINOTRANSFERASE 23 U/L (12-78); ALBUMIN 3.4 G/DL (3.4-5.0); ALBUMIN/GLOBULIN RATIO 1.2 (1.1-1.5); ALKALINE PHOSPHATASE 85 IU/L (46-116); ANION GAP 9 (8-16); ASPARTATE AMINO TRANSFERASE 18 U/L (10-37); BILIRUBIN,TOTAL 0.4 MG/DL (0.1-1.0); BLOOD UREA NITROGEN 18 MG/DL (7-18); BUN/CREATININE RATIO 19.8 (6.6-38.0); CALCIUM 9.1 MG/DL (8.5-10.1); CHLORIDE 110 MMOL/L (99-107); CREATININE 0.91 MG/DL (0.40-0.90); GLUCOSE 95 MG/DL (70-104); POTASSIUM 3.9 MMOL/L (3.5-5.1); SODIUM 145 MMOL/L (135-145); TOTAL CARBON DIOXIDE 26.4 MMOL/L (24-32); TOTAL PROTEIN 6.2 G/DL (6.4-8.2); eGFR 61 ML/MIN
--- NOTE | 2021-01-16 09:50 | NUR ---
PT'S , BILL, CALLED FOR STATUS UPDATE. CONTACT # PT HAS GIVEN PERMISSION TO GIVE HER STATUS INFORMATION WHEN HE CALLS.
[2021-01-16 09:57] LABS: MAGNESIUM 1.9 MG/DL (1.5-2.4)
[2021-01-16] MEDS ORDERED: metoprolol tartrate 1mg/ml inj IV PRN (10:35)
[2021-01-16] MEDS ORDERED: HYDROcodone/acetaminophen 5mg/325mg tablet PO PRN (10:35)
[2021-01-16] MEDS ORDERED: regadenoson 0.4mg/5ml syringe IV ONE (10:35)
[2021-01-16] MEDS ORDERED: morphine 2 MG/ML inj. syringe IV PRN ×2 (10:35)
[2021-01-16] MEDS ORDERED: magnesium hydroxide 30ml (MOM) UD suspension PO PRN (10:35)
[2021-01-16] MEDS ORDERED: nitroGLYCERIN 0.4mg SUBLingual tab SL PRN (10:35)
[2021-01-16] MEDS ORDERED: aminophylline 250mg/10ml inj. IV PRN (10:35)
[2021-01-16] MEDS ORDERED: PERFLUTREN PROTEIN-A MICROSPHR (Optison) 0.22 MG/ML 3ML VIAL IV ONE (10:35)
[2021-01-16] MEDS ORDERED: ondansetron/PF 4mg/2ml inj IV PRN (10:35)
[2021-01-16] MEDS ORDERED: acetaminophen 325mg tablet PO PRN ×2 (10:35)
[2021-01-16] MEDS ORDERED: mag hydrox/Alum hydrox/simeth 30ml oral suspension PO PRN (10:35)
[2021-01-16] MEDS ORDERED: HYDROcodone/acetaminophen 10/325mg tab PO PRN (10:35)
[2021-01-16] MEDS ORDERED: ALPRAZolam 0.25mg tablet PO PRN (11:00)
[2021-01-16] MEDS: pantoprazole 40mg Tablet.DR PO SCH ×2 (11:15→13:54)
[2021-01-16] MEDS ORDERED: NITR0.4T51 SL (11:19)
[2021-01-16] MEDS ORDERED: OXYC1TAB17 PO (11:19)
[2021-01-16] MEDS: normal saline 1000ml 1,000 ML IV SCH ×2 (12:01→21:06)
[2021-01-16] MEDS: pramipexole 0.25mg tablet PO SCH ×3 (13:00→21:05)
--- NOTE | 2021-01-16 18:44 | NUR ---
APRIL RODRIGUES, HAS GIVEN REPORT TO NEXT RN.
[2021-01-16] MEDS: sotalol 80mg tablet PO SCH (21:05)
[2021-01-16] MEDS: gabapentin 300mg capsule PO SCH (21:05)
[2021-01-16] MEDS: heparin, porcine 5000 units/ml vial SQ SCH (21:06)
[2021-01-16 22:00] VITALS: BP 155/71
[2021-01-17] VITALS (19 sets, daily range): BP systolic 105–175; BP diastolic 46–87
[2021-01-17] MEDS: pramipexole 0.25mg tablet PO SCH ×3 (08:28→21:21)
[2021-01-17] MEDS: sotalol 80mg tablet PO SCH ×2 (08:29→20:19)
[2021-01-17] MEDS: pantoprazole 40mg Tablet.DR PO SCH (08:29)
[2021-01-17] MEDS: heparin, porcine 5000 units/ml vial SQ SCH ×2 (08:30→20:21)
[2021-01-17] MEDS ORDERED: regadenoson 0.4mg/5ml syringe IV PRN (10:05)
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
[2021-01-17] MEDS: normal saline 1000ml 1,000 ML IV SCH (15:11)
[2021-01-17] MEDS: gabapentin 300mg capsule PO SCH (20:19)
[2021-01-18 02:00] VITALS: BP 153/71
[2021-01-18] MEDS: normal saline 1000ml 1,000 ML IV SCH (05:29)
[2021-01-18 06:00] VITALS: BP 135/76
[2021-01-18] MEDS: pramipexole 0.25mg tablet PO SCH (08:11)
[2021-01-18] MEDS: heparin, porcine 5000 units/ml vial SQ SCH (08:12)
[2021-01-18] MEDS: pantoprazole 40mg Tablet.DR PO SCH (08:12)
[2021-01-18] MEDS: sotalol 80mg tablet PO SCH (08:13)
[2021-01-18 11:00] VITALS: BP 132/55
[2021-01-18] MEDS ORDERED: PANT40TA54 PO (11:17)
--- NOTE | 2021-01-18 12:15 | NUR ---
pt received dc instructions and rx. Pt in no distress. All questions answered. IV removed. pt to be pick up and delivery driver shortly.
== END 2021-01-18 12:50 | disposition home or self-care (01) | DRG 303 ==
LOC: ER 08:36 → ED HOLD 10:40 → EDBEDREQ 18:28 → PCU 3S 19:08
PROVIDERS: ADMIT Internal Medicine; ATTEND Internal Medicine
PROC: 4A02XM4 Measurement of Cardiac Total Activity, External Approach (ICD-10-PCS; principal; 2021-01-17)
PROC: 3E073KZ Introduction of Other Diagnostic Substance into Coronary Artery, Percutaneous Approach (ICD-10-PCS; 2021-01-17)
DX: I25.119 Atherosclerotic heart disease of native coronary artery with unspecified angina pectoris (principal); I48.91 Unspecified atrial fibrillation; E78.00 Pure hypercholesterolemia, unspecified; E78.5 Hyperlipidemia, unspecified; F17.210 Nicotine dependence, cigarettes, uncomplicated; J44.9 Chronic obstructive pulmonary disease, unspecified; F12.90 Cannabis use, unspecified, uncomplicated; F32.A Depression, unspecified; F43.9 Reaction to severe stress, unspecified; G89.29 Other chronic pain; K21.9 Gastro-esophageal reflux disease without esophagitis; Z20.822 Contact with and (suspected) exposure to COVID-19; F41.9 Anxiety disorder, unspecified; I10 Essential (primary) hypertension; I25.2 Old myocardial infarction; Z86.73 Personal history of transient ischemic attack (TIA), and cerebral infarction without residual deficits; Z87.11 Personal history of peptic ulcer disease; Z90.710 Acquired absence of both cervix and uterus; Z95.0 Presence of cardiac pacemaker; Z95.1 Presence of aortocoronary bypass graft; Z95.5 Presence of coronary angioplasty implant and graft; Z90.49 Acquired absence of other specified parts of digestive tract; Z71.6 Tobacco abuse counseling; Z79.899 Other long term (current) drug therapy
CPT/HCPCS: 36415; 71045; 78452; 80053; 83735; 83880; 84484; 85025; 85610; 87081; 87635; 93005; 93017; 93306; 97161; 97530; 99285; A9500; G0378; J0280; J1644; J2785; J7030

== ENCOUNTER 2021-03-03 12:26 | Emergency (ER) | payer MEDICARE, BC ==
[~2021-03-03] VITALS: Ht 160 cm; Wt 65.0 kg
[~2021-03-03 12:26] MED LIST changes: -ATOR40TA71 PO; -DIAZ5TAB23 PO; -DIPH25CA83 PO; -MELO-102 PO; +NITR0.4T51 SL; +OXYC1TAB17 PO; +PANT40TA54 PO
[2021-03-03] MEDS ORDERED: aspirin 81mg tab.chew PO ONE (12:30)
[2021-03-03] MEDS ORDERED: nitroGLYCERIN 0.2mg/hour patch TD ONE (12:45)
[2021-03-03 13:00] LABS: BASOPHILS % (AUTO) 0.3 % (0-1); EOSINOPHILS # (AUTO) 0.1 X10'3 (0-0.9); EOSINOPHILS % (AUTO) 0.9 % (0-6); HEMATOCRIT 35.4 % (35.0-45.0); HEMOGLOBIN 11.9 g/dl (12.0-16.0); LYMPHOCYTES # (AUTO) 1.5 X10'3 (1.1-4.8); LYMPHOCYTES % (AUTO) 25.5 % (21-51); MEAN CORPUSCULAR HEMOGLOBIN 30.8 PG (27.0-31.0); MEAN CORPUSCULAR HGB CONC 33.7 g/dL (33.0-36.5); MEAN CORPUSCULAR VOLUME 91.2 FL (78-98); MEAN PLATELET VOLUME 7.2 FL (7.4-10.4); MONOCYTES # (AUTO) 0.4 X10'3 (0-0.9); MONOCYTES % (AUTO) 6.8 % (2-12); NEUTROPHILS # (AUTO) 3.8 X10'3 (1.8-7.7); NEUTROPHILS % (AUTO) 66.5 % (42-75); PLATELET COUNT 193 X10'3 (140-440); RED BLOOD COUNT 3.88 X10'6 (4.20-5.60); RED CELL DISTRIBUTION WIDTH 14.6 % (11.5-14.5); WHITE BLOOD COUNT 5.7 X10'3 (4.5-11.0)
[2021-03-03 13:08] LABS: PARTIAL THROMBOPLASTIN TIME 32 SECONDS (22-32)
[2021-03-03 13:22] LABS: ALANINE AMINOTRANSFERASE 21 U/L (12-78); ALBUMIN/GLOBULIN RATIO 1.2 (1.1-1.5); ALKALINE PHOSPHATASE 90 IU/L (46-116); ANION GAP 8 (8-16); ASPARTATE AMINO TRANSFERASE 18 U/L (10-37); BILIRUBIN,TOTAL 0.5 MG/DL (0.1-1.0); BLOOD UREA NITROGEN 13 MG/DL (7-18); BUN/CREATININE RATIO 16.7 (6.6-38.0); CALCIUM 8.6 MG/DL (8.5-10.1); CHLORIDE 107 MMOL/L (99-107); CREATININE 0.78 MG/DL (0.40-0.90); GLUCOSE 94 MG/DL (70-104); MAGNESIUM 1.8 MG/DL (1.5-2.4); POTASSIUM 4.1 MMOL/L (3.5-5.1); SODIUM 143 MMOL/L (135-145); TOTAL CARBON DIOXIDE 28.3 MMOL/L (24-32); TOTAL PROTEIN 5.6 G/DL (6.4-8.2); eGFR 73 ML/MIN
[2021-03-03 13:50] VITALS: BP 135/76
== END 2021-03-03 13:52 | disposition home or self-care (01) ==
LOC: ER 12:27
DX: I20.9 Angina pectoris, unspecified (principal); R07.89 Other chest pain; R05.9 Cough, unspecified; R11.10 Vomiting, unspecified; R06.02 Shortness of breath; I48.91 Unspecified atrial fibrillation; E78.00 Pure hypercholesterolemia, unspecified; I10 Essential (primary) hypertension; I25.2 Old myocardial infarction; J44.9 Chronic obstructive pulmonary disease, unspecified; K21.9 Gastro-esophageal reflux disease without esophagitis; G89.29 Other chronic pain; F31.9 Bipolar disorder, unspecified; F12.90 Cannabis use, unspecified, uncomplicated; Z86.73 Personal history of transient ischemic attack (TIA), and cerebral infarction without residual deficits; Z86.69 Personal history of other diseases of the nervous system and sense organs; Z87.11 Personal history of peptic ulcer disease; Z87.440 Personal history of urinary (tract) infections; Z90.89 Acquired absence of other organs; Z90.49 Acquired absence of other specified parts of digestive tract; Z98.890 Other specified postprocedural states; Z95.0 Presence of cardiac pacemaker; Z90.710 Acquired absence of both cervix and uterus; Z79.899 Other long term (current) drug therapy
CPT/HCPCS: 36415; 71045; 80053; 83735; 83880; 84484; 85025; 85610; 85730; 93005; 99285

== ENCOUNTER 2021-09-15 00:40 | Emergency (ER) | payer MEDICARE, BC ==
[~2021-09-15] VITALS: Ht 160 cm; Wt 65.9 kg
[2021-09-15 00:50] VITALS: BP 164/71
--- NOTE | 2021-09-15 01:03 | NUR ---
POISON CONTROL RECOMENDATION: SEDATION/DROWSINESS COMMON. MAJOR TOXICITY IS UNCOMMON. NO REVERSAL AGENT RECOMMENDED. RULE OUT TYLENOL, ASPIRIN, ALCOHOL LABS. IF AIRWAY COMPROMISED INTUBATE. OBSERVE 6HR FOR SYMPTOMS. POISON CONTROL PERSONEL NAME WAS GLADIS.
[2021-09-15 01:49] LABS: BASOPHILS % (AUTO) 0.9 % (0-1); EOSINOPHILS # (AUTO) 0.1 X10'3 (0-0.9); EOSINOPHILS % (AUTO) 1.8 % (0-6); HEMATOCRIT 40.3 % (35.0-45.0); HEMOGLOBIN 13.3 g/dl (12.0-16.0); LYMPHOCYTES # (AUTO) 1.5 X10'3 (1.1-4.8); LYMPHOCYTES % (AUTO) 34.4 % (21-51); MEAN CORPUSCULAR HEMOGLOBIN 29.3 PG (27.0-31.0); MEAN CORPUSCULAR HGB CONC 33.1 g/dL (33.0-36.5); MEAN CORPUSCULAR VOLUME 88.6 FL (78-98); MEAN PLATELET VOLUME 7.7 FL (7.4-10.4); MONOCYTES # (AUTO) 0.3 X10'3 (0-0.9); MONOCYTES % (AUTO) 6.3 % (2-12); NEUTROPHILS # (AUTO) 2.6 X10'3 (1.8-7.7); NEUTROPHILS % (AUTO) 56.6 % (42-75); PLATELET COUNT 152 X10'3 (140-440); RED BLOOD COUNT 4.55 X10'6 (4.20-5.60); RED CELL DISTRIBUTION WIDTH 15.2 % (11.5-14.5); WHITE BLOOD COUNT 4.5 X10'3 (4.5-11.0)
[2021-09-15 01:51] LABS: ALANINE AMINOTRANSFERASE 24 U/L (12-78); ALBUMIN 3.8 G/DL (3.4-5.0); ALBUMIN/GLOBULIN RATIO 1.4 (1.1-1.5); ALKALINE PHOSPHATASE 95 IU/L (46-116); ANION GAP 8 (8-16); ASPARTATE AMINO TRANSFERASE 20 U/L (10-37); BILIRUBIN,TOTAL 0.6 MG/DL (0.1-1.0); BLOOD UREA NITROGEN 14 MG/DL (7-18); BUN/CREATININE RATIO 13.7 (6.6-38.0); CALCIUM 9.1 MG/DL (8.5-10.1); CHLORIDE 108 MMOL/L (99-107); CREATININE 1.02 MG/DL (0.40-0.90); GLUCOSE 139 MG/DL (70-104); POTASSIUM 3.8 MMOL/L (3.5-5.1); SODIUM 145 MMOL/L (135-145); TOTAL PROTEIN 6.5 G/DL (6.4-8.2); eGFR 54 ML/MIN
[2021-09-15 02:03] LABS: ACETAMINOPHEN < 2.0 UG/ML (10-30); ETHANOL < 0.010 GM/DL (0.0-0.010)
== END 2021-09-15 02:46 | disposition left against medical advice (07) ==
LOC: ER 00:41
DX: R45.851 Suicidal ideations (principal); R94.6 Abnormal results of thyroid function studies; Z53.21 Procedure and treatment not carried out due to patient leaving prior to being seen by health care provider
CPT/HCPCS: 36415; 80053; 80320; 80329; 84443; 85025

== ENCOUNTER 2021-09-21 11:43 | Emergency (ER) | payer MEDICARE, BC ==
[~2021-09-21] VITALS: Ht 160 cm; Wt 65.0 kg
[2021-09-21] MEDS ORDERED: oxyCODONE IR 5mg (immed. release) tablet PO ONE ×2 (13:05→15:45)
[2021-09-21] MEDS ORDERED: ondansetron 4mg rapidly disintigrating tab PO ONE (13:05)
[2021-09-21 13:33] LABS: CLARITY,URINE CLEAR (Clear); COLOR,URINE YELLOW (Yellow); GLUCOSE, URINE NEGATIVE (Neg); KETONES,URINE NEGATIVE (Neg); LEUKOCYTE ESTERASE ,URINE NEGATIVE (Neg); NITRITES, URINE NEGATIVE (Neg); OCCULT BLOOD,URINE NEGATIVE (Neg); PROTEIN,URINE NEGATIVE (Neg); UROBILINOGEN,URINE 0.2 E.U/dL (0.2-1.0)
[2021-09-21 13:34] LABS: UA COLLECTION TYPE CLN CATCH MIDSTREAM
[2021-09-21 13:43] LABS: URINE AMPHETAMINE SCREEN NEGATIVE (Neg); URINE BARBITUATE SCREEN NEGATIVE (Neg); URINE BENZODIAZEPINES SCREEN NEGATIVE (Neg); URINE CANNABINOID SCREEN NEGATIVE (Neg); URINE COCAINE SCREEN NEGATIVE (Neg); URINE METHADONE SCREEN NEGATIVE (Neg); URINE OPIATE SCREEN NEGATIVE (Neg); URINE PHENCYCLIDINE SCREEN NEGATIVE (Neg)
[2021-09-21 13:48] LABS: BASOPHILS % (AUTO) 0.7 % (0-1); EOSINOPHILS # (AUTO) 0.1 X10'3 (0-0.9); EOSINOPHILS % (AUTO) 1.8 % (0-6); HEMATOCRIT 39.6 % (35.0-45.0); HEMOGLOBIN 13.1 g/dl (12.0-16.0); LYMPHOCYTES # (AUTO) 1.4 X10'3 (1.1-4.8); LYMPHOCYTES % (AUTO) 29.3 % (21-51); MEAN CORPUSCULAR HGB CONC 33.2 g/dL (33.0-36.5); MEAN CORPUSCULAR VOLUME 87.5 FL (78-98); MEAN PLATELET VOLUME 7.8 FL (7.4-10.4); MONOCYTES # (AUTO) 0.3 X10'3 (0-0.9); MONOCYTES % (AUTO) 6.4 % (2-12); NEUTROPHILS % (AUTO) 61.8 % (42-75); PLATELET COUNT 171 X10'3 (140-440); RED BLOOD COUNT 4.53 X10'6 (4.20-5.60); RED CELL DISTRIBUTION WIDTH 15.5 % (11.5-14.5); WHITE BLOOD COUNT 4.9 X10'3 (4.5-11.0)
[2021-09-21 14:03] LABS: ALANINE AMINOTRANSFERASE 18 U/L (12-78); ALBUMIN 3.9 G/DL (3.4-5.0); ALBUMIN/GLOBULIN RATIO 1.4 (1.1-1.5); ALKALINE PHOSPHATASE 96 IU/L (46-116); ANION GAP 7 (8-16); ASPARTATE AMINO TRANSFERASE 19 U/L (10-37); BILIRUBIN,TOTAL 0.5 MG/DL (0.1-1.0); BLOOD UREA NITROGEN 14 MG/DL (7-18); BUN/CREATININE RATIO 18.4 (6.6-38.0); CALCIUM 9.4 MG/DL (8.5-10.1); CHLORIDE 108 MMOL/L (99-107); CREATININE 0.76 MG/DL (0.40-0.90); GLUCOSE 81 MG/DL (70-104); POTASSIUM 3.8 MMOL/L (3.5-5.1); SODIUM 143 MMOL/L (135-145); TOTAL CARBON DIOXIDE 28.2 MMOL/L (24-32); TOTAL PROTEIN 6.7 G/DL (6.4-8.2); eGFR 75 ML/MIN
[2021-09-21 14:06] LABS: ETHANOL < 0.010 GM/DL (0.0-0.010); LIPASE 119 U/L (73-393)
[2021-09-21 14:24] VITALS: BP 146/69
[2021-09-21] MEDS ORDERED: OXYC-481 PO (17:33)
[2021-09-21] MEDS ORDERED: ONDA4TAB12 PO (17:33)
== END 2021-09-21 18:22 | disposition home or self-care (01) ==
LOC: ER 11:43
DX: R10.30 Lower abdominal pain, unspecified (principal); I11.0 Hypertensive heart disease with heart failure; E78.00 Pure hypercholesterolemia, unspecified; J44.9 Chronic obstructive pulmonary disease, unspecified; K21.9 Gastro-esophageal reflux disease without esophagitis; F31.9 Bipolar disorder, unspecified; G89.29 Other chronic pain; Z87.448 Personal history of other diseases of urinary system; Z79.899 Other long term (current) drug therapy; R41.82 Altered mental status, unspecified
CPT/HCPCS: 36415; 70450; 74176; 80053; 80305; 80320; 81003; 82140; 83690; 84484; 85025; 93005; 99285

== ENCOUNTER 2021-10-07 14:51 | Emergency (ER) | payer MEDICARE, BC ==
[~2021-10-07] VITALS: Ht 160 cm; Wt 54.5 kg
[~2021-10-07 14:51] MED LIST changes: +ONDA4TAB12 PO; +OXYC-481 PO
[2021-10-07 15:21] LABS: BASOPHILS % (AUTO) 0.3 % (0-1); EOSINOPHILS # (AUTO) 0.1 X10'3 (0-0.9); EOSINOPHILS % (AUTO) 1.6 % (0-6); HEMATOCRIT 37.8 % (35.0-45.0); HEMOGLOBIN 12.6 g/dl (12.0-16.0); LYMPHOCYTES # (AUTO) 1.4 X10'3 (1.1-4.8); LYMPHOCYTES % (AUTO) 26.1 % (21-51); MEAN CORPUSCULAR HEMOGLOBIN 29.6 PG (27.0-31.0); MEAN CORPUSCULAR HGB CONC 33.2 g/dL (33.0-36.5); MEAN CORPUSCULAR VOLUME 89.3 FL (78-98); MEAN PLATELET VOLUME 7.6 FL (7.4-10.4); MONOCYTES # (AUTO) 0.3 X10'3 (0-0.9); MONOCYTES % (AUTO) 5.8 % (2-12); NEUTROPHILS # (AUTO) 3.5 X10'3 (1.8-7.7); NEUTROPHILS % (AUTO) 66.2 % (42-75); PLATELET COUNT 169 X10'3 (140-440); RED BLOOD COUNT 4.24 X10'6 (4.20-5.60); RED CELL DISTRIBUTION WIDTH 15.7 % (11.5-14.5); WHITE BLOOD COUNT 5.3 X10'3 (4.5-11.0)
[2021-10-07 15:32] LABS: APTT 30 SECONDS (22-32)
[2021-10-07 15:34] VITALS: BP 172/69
[2021-10-07 15:34] LABS: ALANINE AMINOTRANSFERASE 22 U/L (12-78); ALBUMIN 3.9 G/DL (3.4-5.0); ALBUMIN/GLOBULIN RATIO 1.4 (1.1-1.5); ALKALINE PHOSPHATASE 85 IU/L (46-116); ANION GAP 5 (8-16); ASPARTATE AMINO TRANSFERASE 22 U/L (10-37); BILIRUBIN,TOTAL 0.7 MG/DL (0.1-1.0); BLOOD UREA NITROGEN 19 MG/DL (7-18); BUN/CREATININE RATIO 17.3 (6.6-38.0); CALCIUM 9.1 MG/DL (8.5-10.1); CHLORIDE 109 MMOL/L (99-107); GLUCOSE 100 MG/DL (70-104); POTASSIUM 4.7 MMOL/L (3.5-5.1); SODIUM 144 MMOL/L (135-145); TOTAL CARBON DIOXIDE 30.3 MMOL/L (24-32); TOTAL PROTEIN 6.6 G/DL (6.4-8.2); eGFR 49 ML/MIN
--- NOTE | 2021-10-07 16:24 | NUR ---
tele neuro on going.
--- NOTE | 2021-10-07 17:49 | NUR ---
PT LEFT WITHOUT RECEIVING DC INSTRUCTIONS AND LEFT HER HEALTH CARE CARDS. PT CALLED AND MESSAGE LEFT
== END 2021-10-07 17:51 | disposition home or self-care (01) ==
LOC: ER 15:00
DX: M79.601 Pain in right arm (principal); M79.604 Pain in right leg; R20.0 Anesthesia of skin; I11.9 Hypertensive heart disease without heart failure; E78.00 Pure hypercholesterolemia, unspecified; J44.9 Chronic obstructive pulmonary disease, unspecified; K21.9 Gastro-esophageal reflux disease without esophagitis; G89.29 Other chronic pain; F31.9 Bipolar disorder, unspecified; Z87.448 Personal history of other diseases of urinary system
CPT/HCPCS: 36415; 70450; 71045; 80053; 85025; 85610; 85730; 93005; 99285

== ENCOUNTER 2021-12-29 09:15 | Emergency (ER) | payer MEDICARE, BC ==
[~2021-12-29] VITALS: Ht 160 cm; Wt 53.6 kg
[~2021-12-29 09:15] MED LIST changes: -OXYC-481 PO
[2021-12-29 09:49] VITALS: BP 142/63
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
== END 2021-12-29 10:10 | disposition left against medical advice (07) ==
LOC: ER 09:15
DX: Z04.71 Encounter for examination and observation following alleged adult physical abuse (principal); Z53.21 Procedure and treatment not carried out due to patient leaving prior to being seen by health care provider

== ENCOUNTER 2021-12-29 14:00 | Emergency (ER) | payer MEDICARE, BC ==
[~2021-12-29] VITALS: Ht 160 cm; Wt 53.6 kg
[2021-12-29 14:52] VITALS: BP 148/70
--- NOTE | 2021-12-29 14:58 | NUR ---
[facility] CASE #[id number].
== END 2021-12-29 16:39 | disposition left against medical advice (07) ==
LOC: ER 14:01
DX: S00.12XA Contusion of left eyelid and periocular area, initial encounter (principal); S00.03XA Contusion of scalp, initial encounter; I10 Essential (primary) hypertension; E78.00 Pure hypercholesterolemia, unspecified; J44.9 Chronic obstructive pulmonary disease, unspecified; K21.9 Gastro-esophageal reflux disease without esophagitis; N17.9 Acute kidney failure, unspecified; G89.29 Other chronic pain; F31.9 Bipolar disorder, unspecified; F12.90 Cannabis use, unspecified, uncomplicated; Z98.890 Other specified postprocedural states; Y08.89XA Assault by other specified means, initial encounter; Y93.89 Activity, other specified; Y92.89 Other specified places as the place of occurrence of the external cause; Y99.8 Other external cause status
CPT/HCPCS: 70450; 70486; 70490; 99284